=== PATIENT | male | born 1950 | race Caucasian/White ===

== ENCOUNTER 2018-06-08 04:46 | Inpatient (IN) | payer MEDICARE, MEDICAID ==
[~2018-06-08] VITALS: Ht 167.6 cm; Wt 69.5 kg
[~2018-06-08 04:46] MED LIST: BENZ1TAB7 PO; CLON-528 PO; ESCI20TA29 PO; HAL5T PO; SYN0.088T PO
[2018-06-08] MEDS ORDERED: levoFLOXACIN-Levaquin 750MG/D5 150 ML IV STA (05:55)
[2018-06-08] MEDS ORDERED: normal saline 1000ML IV soln IVB ONE ×2 (06:00→06:30)
[2018-06-08] MEDS ORDERED: etomidate 2mg/ml inj. ONE (06:00)
[2018-06-08] MEDS ORDERED: SIMV20TA5 PO (06:06)
[2018-06-08 06:27] LABS: BASOPHILS % (AUTO) 0 % (0-1); EOSINOPHILS # (AUTO) 0.1 X10'3 (0-0.9); EOSINOPHILS % (AUTO) 1.3 % (0-6); HEMATOCRIT 52.9 % (42.0-52.0); HEMOGLOBIN 17.8 g/dl (14.0-17.9); LYMPHOCYTES # (AUTO) 0.2 X10'3 (1.1-4.8); LYMPHOCYTES % (AUTO) 1.9 % (21-51); MEAN CORPUSCULAR HEMOGLOBIN 28.9 PG (27.0-31.0); MEAN CORPUSCULAR HGB CONC 33.6 % (33.0-36.5); MEAN CORPUSCULAR VOLUME 86.2 FL (78-98); MEAN PLATELET VOLUME 10.1 FL (7.4-10.4); MONOCYTES # (AUTO) 0.8 X10'3 (0-0.9); MONOCYTES % (AUTO) 6.9 % (2-12); NEUTROPHILS # (AUTO) 10.2 X10'3 (1.8-7.7); NEUTROPHILS % (AUTO) 89.9 % (42-75); PLATELET COUNT 250 X10'3 (140-440); RED BLOOD COUNT 6.14 X10'6 (4.70-6.10); RED CELL DISTRIBUTION WIDTH 14.6 % (11.5-14.5); WHITE BLOOD COUNT 11.3 X10'3 (4.5-11.0)
--- NOTE | 2018-06-08 06:29 | NUR ---
Held lynetteuin due to blood culture not being drawn prior. Addendum: 06/08/18 at 0630 by HGOFF Will await first set of blood cultures to continue abx.
[2018-06-08] MEDS ORDERED: ondansetron/PF 4mg/2ml inj IV ONE (06:30)
[2018-06-08] MEDS ORDERED: morphine 4 MG/ML inj SYRINge IV PRN (06:30)
--- NOTE | 2018-06-08 06:30 | NUR ---
Spoke with Dr. Yee regarding patient rolling from side to side, c/o top of head pain and palpable pain over bilateral flanks. And need for pain medication. Dr. Yee stated that he would order something for pain.
[2018-06-08 07:03] LABS: ALANINE AMINOTRANSFERASE 281 U/L (12-78); ALBUMIN/GLOBULIN RATIO 0.6 (1.1-1.5); ALKALINE PHOSPHATASE 59 IU/L (46-116); ANION GAP 16 (8-16); ASPARTATE AMINO TRANSFERASE 674 U/L (10-37); BLOOD UREA NITROGEN 35 MG/DL (7-18); BUN/CREATININE RATIO 24.1 (5.4-32.0); CALCIUM 9.1 MG/DL (8.5-10.1); CHLORIDE 103 MMOL/L (99-107); CREATININE 1.45 MG/DL (0.60-1.10); GLUCOSE 203 MG/DL (70-104); POTASSIUM 3.4 MMOL/L (3.5-5.1); SODIUM 144 MMOL/L (135-145); TOTAL CARBON DIOXIDE 24.8 MMOL/L (24-32); TOTAL PROTEIN 8.1 G/DL (6.4-8.2); eGFR 49 ML/MIN
[2018-06-08] MEDS ORDERED: CefTRIAXone 2gm/D5W 50ml 50 ML IV ONE (07:05)
[2018-06-08 07:08] LABS: MAGNESIUM 2.7 MG/DL (1.5-2.4)
[2018-06-08] MEDS ORDERED: acetaminophen 325mg tablet PO PRN (07:25)
[2018-06-08] MEDS ORDERED: mag hydrox/Alum hydrox/simeth 30ml oral suspension PO PRN (07:25)
[2018-06-08] MEDS ORDERED: ondansetron/PF 4mg/2ml inj IV PRN (07:25)
[2018-06-08] MEDS ORDERED: magnesium hydroxide 30ml (MOM) UD suspension PO PRN (07:25)
[2018-06-08 07:26] LABS: CLARITY,URINE SLIGHTLY CLOUDY (Clear); GLUCOSE, URINE NEGATIVE (Neg); KETONES,URINE TRACE mg/dl (Neg); LEUKOCYTE ESTERASE ,URINE NEGATIVE (Neg); NITRITES, URINE NEGATIVE (Neg); OCCULT BLOOD,URINE LARGE (Neg); PROTEIN,URINE >=300 mg/dl (Neg); UROBILINOGEN,URINE 0.2 E.U/dL (0.2-1.0)
[2018-06-08 07:27] LABS: COLOR,URINE BROWN (Yellow); UA COLLECTION TYPE STRAIGHT CATH
[2018-06-08 07:30] LABS: WBC,URINE 30-50 /HPF (0-4)
[2018-06-08 07:31] LABS: BACTERIA,URINE 1+ /HPF (Neg)
[2018-06-08 07:32] LABS: CELLULAR CAST >30 /LPF (NEGATIVE); SQUAMOUS EPITHELIAL CELL,UR NONE SEEN /LPF (FEW)
[2018-06-08] MEDS: heparin, porcine 5000 units/ml vial SQ SCH ×2 (08:15→20:48)
[2018-06-08] MEDS: piperacillin-tazo 2.25gm/50ml 50 ML IV SCH ×3 (08:17→20:47)
[2018-06-08] MEDS: normal saline 1000ml 1,000 ML IV SCH ×2 (08:21→14:56)
[2018-06-08] MEDS ORDERED: LORazepam 2 mg/ml vial IV ONE (08:45)
[2018-06-08] MEDS: haloperidol 5mg tablet PO SCH (09:05)
[2018-06-08] MEDS ORDERED: potassium Cl 40MEQ/NS 500ml 500 ML IV PRN ×2 (09:05)
[2018-06-08] MEDS: K and/or MAG REPLACEMENT MC SCH (09:05)
[2018-06-08] MEDS ORDERED: potassium Cl 20 mEq SR tablet PO PRN (09:05)
[2018-06-08] MEDS: citalopram 20mg tablet PO SCH (09:05)
--- NOTE | 2018-06-08 09:31 | NUR ---
Patient found in hallway outside of bed 6 in a chair, patients IV had been pulled out and patient was bleeding on the ground, gurney, floor and chair. Pressure applied to IV site, Notified EVS to assisted with floor and room clean up. Patient was guided back to [facility] then cleaned with wipes and dressed in grown. Patient urinated on gurney when back on [facility]. Patient now resting on rtiger with sitter, but patient continues to roll from side to side, restless. pPtient denies any pain. Palpated abd without any grimace and/or wincing. Will continue to monitor patient. Ativan administered to help with restlessness.
--- NOTE | 2018-06-08 10:07 | NUR ---
Patient in room ED 6. I have received report from Danielle SPRINGER and had the opportunity to ask questions and assume patient care.
--- NOTE | 2018-06-08 10:20 | NUR ---
Patient arrived to U 3012C, accompanied by Zuri RN. Patient is extremely restless and trying to get out of bed. Patient VS: T:97.1 ax, HR 77, R: 20, 02: 91% 4L, BP 124/94. Will continue to monitor.
--- NOTE | 2018-06-08 11:03 | NUR ---
Paged Dr. Balderas: PAGER ID: [phone] MESSAGE: Summer [facility] [id number] RE: Dany Gray [id number]. Patient is extremely restless and agitated. Constantly rolling from side to side. Received one time dose of 0.5 mg IV Ativan @ 0930. Please advise.
[2018-06-08] MEDS ORDERED: LIDOcaine 2% 10ml TOPICAL JELLY (Urojet) MM PRN (11:10)
[2018-06-08] MEDS: LORazepam 2 mg/ml vial IV PRN ×2 (11:21→15:53)
--- NOTE | 2018-06-08 12:07 | NUR ---
Bladder scan 490 mL/urine retention. Per Dr. Balderas, caudet rojo catheter placed with urojet. Patient has hypospadias. Patient tolerated procedure well. Will continue to monitor.
--- NOTE | 2018-06-08 13:25 | NUR ---
Paged Dr. Balderas: PAGER ID: [phone] MESSAGE: Summer U [id number] RE: Dany Gray [id number]. Speech therapy recommends patient continue to be NPO at this time and will reassess FYI. Patient has several psych meds that were not administered in ER. Please advise. Thank you.
[2018-06-08 15:00] VITALS: BP 129/85
[2018-06-08 19:00] VITALS: BP 140/83
[2018-06-08] MEDS ORDERED: haloperidol lactate 5mg/ml inj IM ONE (20:00)
[2018-06-08] MEDS: benztropine 1mg tablet PO SCH (20:00)
[2018-06-08] MEDS: atorvastatin 10mg tablet PO SCH (21:00)
[2018-06-08 22:00] VITALS: BP 136/79
[2018-06-09] VITALS (8 sets, daily range): BP systolic 131–187; BP diastolic 88–106
[2018-06-09] MEDS: LORazepam 2 mg/ml vial IV PRN ×5 (01:18→20:56)
[2018-06-09] MEDS: piperacillin-tazo 2.25gm/50ml 50 ML IV SCH ×4 (01:34→21:00)
[2018-06-09] MEDS: normal saline 1000ml 1,000 ML IV SCH ×3 (01:34→23:22)
[2018-06-09 06:01] LABS: BASOPHILS % (AUTO) 0.1 % (0-1); EOSINOPHILS % (AUTO) 0 % (0-6); HEMATOCRIT 45.4 % (42.0-52.0); HEMOGLOBIN 14.9 g/dl (14.0-17.9); LYMPHOCYTES # (AUTO) 0.3 X10'3 (1.1-4.8); LYMPHOCYTES % (AUTO) 3.4 % (21-51); MEAN CORPUSCULAR HEMOGLOBIN 28.7 PG (27.0-31.0); MEAN CORPUSCULAR HGB CONC 32.8 % (33.0-36.5); MEAN CORPUSCULAR VOLUME 87.4 FL (78-98); MEAN PLATELET VOLUME 9.6 FL (7.4-10.4); MONOCYTES # (AUTO) 0.5 X10'3 (0-0.9); MONOCYTES % (AUTO) 5.6 % (2-12); NEUTROPHILS # (AUTO) 7.7 X10'3 (1.8-7.7); NEUTROPHILS % (AUTO) 90.9 % (42-75); PLATELET COUNT 222 X10'3 (140-440); RED BLOOD COUNT 5.19 X10'6 (4.70-6.10); RED CELL DISTRIBUTION WIDTH 13.4 % (11.5-14.5); WHITE BLOOD COUNT 8.5 X10'3 (4.5-11.0)
--- NOTE | 2018-06-09 06:15 | NUR ---
Patient in room PCU 3012. I have received report from Summer SPRINGER and had the opportunity to ask questions and assume patient care.
[2018-06-09 06:25] LABS: ALANINE AMINOTRANSFERASE 263 U/L (12-78); ALBUMIN 2.2 G/DL (3.4-5.0); ALBUMIN/GLOBULIN RATIO 0.6 (1.1-1.5); ALKALINE PHOSPHATASE 43 IU/L (46-116); ANION GAP 10 (8-16); ASPARTATE AMINO TRANSFERASE 434 U/L (10-37); BILIRUBIN,TOTAL 0.6 MG/DL (0.1-1.0); BLOOD UREA NITROGEN 16 MG/DL (7-18); BUN/CREATININE RATIO 18.4 (5.4-32.0); CALCIUM 7.6 MG/DL (8.5-10.1); CHLORIDE 112 MMOL/L (99-107); CREATININE 0.87 MG/DL (0.60-1.10); GLUCOSE 107 MG/DL (70-104); POTASSIUM 3.5 MMOL/L (3.5-5.1); SODIUM 149 MMOL/L (135-145); TOTAL CARBON DIOXIDE 26.7 MMOL/L (24-32); TOTAL PROTEIN 6.2 G/DL (6.4-8.2); eGFR 88 ML/MIN
--- NOTE | 2018-06-09 06:30 | NUR ---
Problems reprioritized. Patient report given, questions answered & plan of care reviewed with Daryl SPRINGER.
[2018-06-09] MEDS: K and/or MAG REPLACEMENT MC SCH (08:00)
[2018-06-09] MEDS: heparin, porcine 5000 units/ml vial SQ SCH ×2 (08:57→20:56)
[2018-06-09] MEDS: citalopram 20mg tablet PO SCH (08:58)
[2018-06-09] MEDS: levoTHYROXINE 88mcg tablet PO SCH (08:58)
[2018-06-09] MEDS: benztropine 1mg tablet PO SCH ×2 (08:58→20:00)
[2018-06-09] MEDS: haloperidol 5mg tablet PO SCH (08:58)
[2018-06-09] MEDS ORDERED: aspirin 81mg tablet.DR PO ONE (13:10)
[2018-06-09] MEDS: atorvastatin 20mg tablet PO SCH (14:44)
--- NOTE | 2018-06-09 15:12 | NUR ---
Paged Dr. Balderas for elevated blood pressure. MESSAGE: Daryl Eddy RN [phone] 3012C Dany Gray: Current BP 185/112 HR 118; up from 151/98 HR 120 at 1100. Thank you.
[2018-06-09] MEDS ORDERED: hydrALAZINE 20mg/ml inj. IV PRN (15:20)
--- NOTE | 2018-06-09 18:05 | NUR ---
Patient in room PCU 3012. I have received report from Daryl SPRINGER and had the opportunity to ask questions and assume patient care.
--- NOTE | 2018-06-09 18:15 | NUR ---
Problems reprioritized. Patient report given, questions answered & plan of care reviewed with Sakina SPRINGER.
[2018-06-09] MEDS: carVEDilol 3.125mg tablet PO SCH (20:00)
[2018-06-09] MEDS: lactobacillus rhamnosus 10,000 MMU CELLS/CAPSULE PO SCH (20:00)
[2018-06-09] MEDS: atorvastatin 10mg tablet PO SCH (21:00)
[2018-06-10] MEDS: piperacillin-tazo 2.25gm/50ml 50 ML IV SCH ×4 (02:03→20:42)
[2018-06-10] MEDS: normal saline 1000ml 1,000 ML IV SCH ×3 (02:03→23:54)
[2018-06-10 03:00] VITALS: BP 156/94
[2018-06-10 05:47] LABS: ALANINE AMINOTRANSFERASE 212 U/L (12-78); ALBUMIN 2.1 G/DL (3.4-5.0); ALBUMIN/GLOBULIN RATIO 0.5 (1.1-1.5); ALKALINE PHOSPHATASE 40 IU/L (46-116); ANION GAP 10 (8-16); ASPARTATE AMINO TRANSFERASE 228 U/L (10-37); BILIRUBIN,TOTAL 0.8 MG/DL (0.1-1.0); BLOOD UREA NITROGEN 13 MG/DL (7-18); BUN/CREATININE RATIO 16.5 (5.4-32.0); CALCIUM 8.1 MG/DL (8.5-10.1); CHLORIDE 108 MMOL/L (99-107); CREATININE 0.79 MG/DL (0.60-1.10); GLUCOSE 114 MG/DL (70-104); SODIUM 147 MMOL/L (135-145); TOTAL CARBON DIOXIDE 29.4 MMOL/L (24-32); TOTAL PROTEIN 6.3 G/DL (6.4-8.2); eGFR > 90 ML/MIN
[2018-06-10 06:01] LABS: BASOPHILS % (AUTO) 0 % (0-1); EOSINOPHILS % (AUTO) 0.1 % (0-6); HEMATOCRIT 45.2 % (42.0-52.0); LYMPHOCYTES # (AUTO) 0.4 X10'3 (1.1-4.8); LYMPHOCYTES % (AUTO) 4.4 % (21-51); MEAN CORPUSCULAR HEMOGLOBIN 28.9 PG (27.0-31.0); MEAN CORPUSCULAR HGB CONC 33.1 % (33.0-36.5); MEAN CORPUSCULAR VOLUME 87.2 FL (78-98); MEAN PLATELET VOLUME 9.4 FL (7.4-10.4); MONOCYTES # (AUTO) 0.4 X10'3 (0-0.9); MONOCYTES % (AUTO) 5.5 % (2-12); NEUTROPHILS # (AUTO) 7.2 X10'3 (1.8-7.7); PLATELET COUNT 239 X10'3 (140-440); RED BLOOD COUNT 5.19 X10'6 (4.70-6.10); RED CELL DISTRIBUTION WIDTH 13.4 % (11.5-14.5)
--- NOTE | 2018-06-10 06:05 | NUR ---
Problems reprioritized. Patient report given, questions answered & plan of care reviewed with Ivy SPRINGER.
--- NOTE | 2018-06-10 06:08 | NUR ---
Patient in room PCU 3012. I have received report from Sakina SPRINGER and had the opportunity to ask questions and assume patient care.
[2018-06-10 06:38] LABS: POTASSIUM 2.9 MMOL/L (3.5-5.1)
[2018-06-10 06:47] VITALS: BP 153/88
[2018-06-10] MEDS: aspirin 81mg tablet.DR PO SCH (07:59)
[2018-06-10] MEDS: benztropine 1mg tablet PO SCH ×2 (07:59→20:31)
[2018-06-10] MEDS: potassium Cl 20 mEq SR tablet PO PRN ×2 (08:00→12:00)
[2018-06-10] MEDS: K and/or MAG REPLACEMENT MC SCH (08:00)
[2018-06-10] MEDS: levoTHYROXINE 88mcg tablet PO SCH (08:01)
[2018-06-10] MEDS: haloperidol 5mg tablet PO SCH (08:01)
[2018-06-10] MEDS: atorvastatin 20mg tablet PO SCH (08:01)
[2018-06-10] MEDS: lactobacillus rhamnosus 10,000 MMU CELLS/CAPSULE PO SCH ×2 (08:01→20:29)
[2018-06-10] MEDS: carVEDilol 3.125mg tablet PO SCH ×2 (08:01→20:29)
[2018-06-10] MEDS: citalopram 20mg tablet PO SCH (08:02)
[2018-06-10] MEDS: heparin, porcine 5000 units/ml vial SQ SCH ×2 (08:03→20:30)
[2018-06-10 11:40] VITALS: BP 141/85
[2018-06-10] MEDS: LORazepam 2 mg/ml vial IV PRN ×2 (15:49→20:31)
[2018-06-10 18:00] VITALS: BP 175/72
--- NOTE | 2018-06-10 18:09 | NUR ---
Problems reprioritized. Patient report given, questions answered & plan of care reviewed with Sakina SPRINGER.
--- NOTE | 2018-06-10 18:10 | NUR ---
Patient in room PCU 3012. I have received report from Ivy SPRINGER and had the opportunity to ask questions and assume patient care.
[2018-06-10 18:50] VITALS: BP 156/92
[2018-06-10] MEDS: atorvastatin 10mg tablet PO SCH (20:29)
[2018-06-10 22:00] VITALS: BP 150/86
[2018-06-11] VITALS (14 sets, daily range): BP systolic 97–172; BP diastolic 64–106
[2018-06-11] MEDS: piperacillin-tazo 2.25gm/50ml 50 ML IV SCH ×4 (02:16→22:33)
[2018-06-11] MEDS: LORazepam 2 mg/ml vial IV PRN (03:07)
[2018-06-11 05:47] LABS: ALANINE AMINOTRANSFERASE 169 U/L (12-78); ALBUMIN 2.1 G/DL (3.4-5.0); ALBUMIN/GLOBULIN RATIO 0.5 (1.1-1.5); ALKALINE PHOSPHATASE 41 IU/L (46-116); ANION GAP 8 (8-16); ASPARTATE AMINO TRANSFERASE 123 U/L (10-37); BILIRUBIN,TOTAL 0.9 MG/DL (0.1-1.0); BLOOD UREA NITROGEN 14 MG/DL (7-18); BUN/CREATININE RATIO 17.9 (5.4-32.0); CALCIUM 7.7 MG/DL (8.5-10.1); CHLORIDE 108 MMOL/L (99-107); CREATININE 0.78 MG/DL (0.60-1.10); GLUCOSE 103 MG/DL (70-104); POTASSIUM 3.5 MMOL/L (3.5-5.1); SODIUM 145 MMOL/L (135-145); TOTAL CARBON DIOXIDE 29.4 MMOL/L (24-32); TOTAL PROTEIN 6.4 G/DL (6.4-8.2); eGFR > 90 ML/MIN
[2018-06-11 05:53] LABS: BASOPHILS % (AUTO) 0 % (0-1); EOSINOPHILS % (AUTO) 0.3 % (0-6); HEMATOCRIT 46.3 % (42.0-52.0); HEMOGLOBIN 14.9 g/dl (14.0-17.9); LYMPHOCYTES # (AUTO) 0.3 X10'3 (1.1-4.8); LYMPHOCYTES % (AUTO) 3.7 % (21-51); MEAN CORPUSCULAR HEMOGLOBIN 27.8 PG (27.0-31.0); MEAN CORPUSCULAR HGB CONC 32.1 % (33.0-36.5); MEAN CORPUSCULAR VOLUME 86.4 FL (78-98); MEAN PLATELET VOLUME 9.8 FL (7.4-10.4); MONOCYTES # (AUTO) 0.5 X10'3 (0-0.9); MONOCYTES % (AUTO) 6.1 % (2-12); NEUTROPHILS # (AUTO) 8.2 X10'3 (1.8-7.7); NEUTROPHILS % (AUTO) 89.9 % (42-75); PLATELET COUNT 248 X10'3 (140-440); RED BLOOD COUNT 5.36 X10'6 (4.70-6.10)
--- NOTE | 2018-06-11 06:05 | NUR ---
Problems reprioritized. Patient report given, questions answered & plan of care reviewed with Ivy SPRINGER.
--- NOTE | 2018-06-11 06:22 | NUR ---
Patient in room PCU 3012. I have received report from Chantell SPRINGER and had the opportunity to ask questions and assume patient care.
[2018-06-11] MEDS: citalopram 20mg tablet PO SCH (07:43)
[2018-06-11] MEDS: levoTHYROXINE 88mcg tablet PO SCH (07:43)
[2018-06-11] MEDS: aspirin 81mg tablet.DR PO SCH (07:43)
[2018-06-11] MEDS: carVEDilol 3.125mg tablet PO SCH ×2 (07:43→20:00)
[2018-06-11] MEDS: lactobacillus rhamnosus 10,000 MMU CELLS/CAPSULE PO SCH ×2 (07:43→22:34)
[2018-06-11] MEDS: benztropine 1mg tablet PO SCH ×2 (07:43→22:35)
[2018-06-11] MEDS: haloperidol 5mg tablet PO SCH (07:44)
[2018-06-11] MEDS: heparin, porcine 5000 units/ml vial SQ SCH (07:46)
[2018-06-11] MEDS: atorvastatin 20mg tablet PO SCH (07:47)
[2018-06-11] MEDS: K and/or MAG REPLACEMENT MC SCH (07:47)
--- NOTE | 2018-06-11 11:54 | NUR ---
PAGER ID: [phone] MESSAGE: Can [email or web address]/Dany Gray get ABG? He's satting 91% on flush. Thank you, Ivy [phone]
[2018-06-11] MEDS: normal saline 1000ml 1,000 ML IV SCH (14:40)
--- NOTE | 2018-06-11 14:56 | NUR ---
PAGER ID: [phone] MESSAGE: [id number]/Dany Gray's blood pressure was 172/106, rechecked twice w/same result. Gave PRN hydralazine 10 mg. BP now 140/82. Thank you. Ivy [phone]
--- NOTE | 2018-06-11 15:21 | NUR ---
PAGER ID: [phone] MESSAGE: [id number]/Dany Gray's satts dropped to 87 on flush, heart rate 118. Please advise. Thank you. Ivy [phone].
[2018-06-11 15:56] LABS: ABG BASE EXCESS 5.8 mmol/L (-2.0-3.0); ABG OXYGEN SATURATION 91.1 % (95-98); ABG PCO2 (T) 30.5 mmHg (35.0-48.0); ABG PH (T) 7.565 (7.350-7.450); ABG PO2 (T) 52.8 mmHg (83-108); ALLEN'S TEST Positive; FCOHb 0.3 % (0.5-1.5); FLOW 15 L/min; FMetHb 0.3 % (0.3-1.12); FO2Hb 90.6 % (94-100); TOTAL HEMOGLOBIN 17.8 G/dl (14.0-18.0)
[2018-06-11] MEDS ORDERED: LORazepam 2 mg/ml vial IV ONE (16:10)
[2018-06-11] MEDS ORDERED: furosemide 40mg/4ml inj IV ONE (16:30)
--- NOTE | 2018-06-11 16:40 | NUR ---
Responded to rapid response on PCU 3012 C Found Pt on cpap 100 % rr 32 Anxious and restless Pt has know psych hx but caregiver states this is different Sat 95 % Lung sounds diminished VSS ABG drawn by RT Charge nurse Kate at bedside
--- NOTE | 2018-06-11 17:00 | NUR ---
PCU nurse called Dr Whitney and she called Dr. Turner Orders received to being pt to ICU
[2018-06-11 17:06] LABS: ABG BASE EXCESS 4.5 mmol/L (-2.0-3.0); ABG HCO3 25.7 mmol/L (22.0-26.0); ABG OXYGEN SATURATION 96.3 % (95-98); ABG PH (T) 7.551 (7.350-7.450); ABG PO2 (T) 76.6 mmHg (83-108); ALLEN'S TEST Positive; FCOHb 0.3 % (0.5-1.5); FMetHb 0.3 % (0.3-1.12); FO2Hb 95.7 % (94-100); RESPIRATORY RATE 16 b/min; RESPIRATORY RATE (OBSERVED) 36 b/min; TIDAL VOLUME 658 mL; TOTAL HEMOGLOBIN 18.3 G/dl (14.0-18.0)
--- NOTE | 2018-06-11 17:50 | NUR ---
Pt arrived to 2007 Remain on cpap with alerted mentation Sat 96 % Dr Turner aware of pt arrival b/p 121/91 hr paced 118
[2018-06-11] MEDS ORDERED: fentaNYL/PF 50MCG/1 ML 2ML syringe IV PRN (17:55)
[2018-06-11] MEDS ORDERED: ipratropium/albuterol 3ml nebule NEB PRN (17:55)
[2018-06-11] MEDS ORDERED: midazolam 2 mg/2 ml injection IV ONE (17:55)
[2018-06-11] MEDS ORDERED: midazolam 2 mg/2 ml injection ONE (17:55)
[2018-06-11] MEDS ORDERED: potassium Cl 20 mEq SR tablet PO PRN ×2 (18:00)
[2018-06-11] MEDS ORDERED: potassium Cl 40MEQ/NS 500ml 500 ML IV PRN ×2 (18:00)
[2018-06-11] MEDS ORDERED: ondansetron/PF 4mg/2ml inj IV PRN (18:00)
[2018-06-11] MEDS ORDERED: acetaminophen 325mg tablet PO PRN ×2 (18:00)
[2018-06-11] MEDS ORDERED: magnesium hydroxide 30ml (MOM) UD suspension PO PRN (18:00)
--- NOTE | 2018-06-11 18:10 | NUR ---
Pt intubated at bedside with RT present Versed and etomidate given as ordered B/p dropped with saline bolus being given Two New IV started left and right arm # 20
--- NOTE | 2018-06-11 18:30 | NUR ---
[id number] I have received report and assumed care of pt. Pt in bed moves all extremities but does not follow commands, Md. at bedside, 100ml ns bolus infusing for a sbp in the mid 60's post intubation, Fentanyl and versed ordered but not initiated at this time due to pts low bp. pts MAP remains less then 65 second 1000 ml of ns infusing per md orders 1929 post 2 liters ns given MAP remains less then 65 MD at bedside, rt subclavian quad lumen CVL placed and pt started on Levophed after placement confirmed by Chest xray [id number] PT taken to a cta of his chest, respitory therapy accompanied pt as well as myself, pt returned to room without incident of difficulties. [address] OG, it keeps coiling in his mouth will attempt again 0 report given to rec rn
--- NOTE | 2018-06-11 18:30 | NUR ---
Problems reprioritized. Patient report given, questions answered & plan of care reviewed with EITAN RN Pt remains restless IV sedation slowly given due to low b/p Cxr done .
[2018-06-11] MEDS ORDERED: NORepinephrine 8mg/ 250ml NS 250 ML IV ONE (19:05)
[2018-06-11] MEDS: ipratropium/albuterol 3ml nebule NEB SCH ×2 (19:39→23:12)
[2018-06-11 20:00] LABS: OXYGEN SATURATION (MIXED VEN) 71.5 % (60-80); PO2 MIXED VENOUS (TEMP COR) 40.1 mmHg (35-46)
[2018-06-11 20:10] LABS: ABG HCO3 25.9 mmol/L (22.0-26.0); ABG OXYGEN SATURATION 96.9 % (95-98); ABG PH (T) 7.442 (7.350-7.450); ABG PO2 (T) 95.3 mmHg (83-108); ALLEN'S TEST Positive; FCOHb 0.2 % (0.5-1.5); FMetHb 0.1 % (0.3-1.12); FO2Hb 96.6 % (94-100); PATIENT TEMPERATURE 37.4; PEEP 10 cm H2O; RESPIRATORY RATE 16 b/min; TIDAL VOLUME 400 mL; TOTAL HEMOGLOBIN 16.1 G/dl (14.0-18.0)
[2018-06-11] MEDS ORDERED: iohexol 350MG/ML 100ml bottle IV ONE (20:18)
[2018-06-11] MEDS: famotidine/PF 10 mg/ml inj IV SCH (22:34)
[2018-06-11] MEDS: FENTANYL-0.9 % NACL/PF 100 ML IV PRN (22:36)
[2018-06-11] MEDS: midazolam 100mg in NS 100ml 100 ML IV PRN (22:37)
[2018-06-12] VITALS (23 sets, daily range): BP systolic 59–119; BP diastolic 49–75
[2018-06-12] MEDS: midazolam 100mg in NS 100ml 100 ML IV PRN (00:21)
--- NOTE | 2018-06-12 00:30 | NUR ---
Patient in room CICU 2008. I have received report from Shaina Mancera and had the opportunity to ask questions and assume patient care.
[2018-06-12] MEDS: FENTANYL-0.9 % NACL/PF 100 ML IV PRN ×3 (01:06→23:35)
[2018-06-12] MEDS: normal saline 1000ml 1,000 ML IV SCH (01:22)
[2018-06-12] MEDS: piperacillin-tazo 2.25gm/50ml 50 ML IV SCH ×4 (02:36→20:01)
--- NOTE | 2018-06-12 03:13 | NUR ---
Attempted to place OG tube and NG tube without success. OG and NG kept coiling and kept getting resistance while trying to advance. KUB obtained, placement not confirmed at this time. Patient placed on left side at this time. Will attain another KUB.
[2018-06-12] MEDS: ipratropium/albuterol 3ml nebule NEB SCH ×6 (03:39→23:02)
[2018-06-12 03:48] LABS: BASOPHILS % (AUTO) 0.1 % (0-1); EOSINOPHILS # (AUTO) 0.1 X10'3 (0-0.9); EOSINOPHILS % (AUTO) 0.5 % (0-6); HEMATOCRIT 46.5 % (42.0-52.0); HEMOGLOBIN 14.7 g/dl (14.0-17.9); LYMPHOCYTES # (AUTO) 0.5 X10'3 (1.1-4.8); LYMPHOCYTES % (AUTO) 4.4 % (21-51); MEAN CORPUSCULAR HEMOGLOBIN 27.6 PG (27.0-31.0); MEAN CORPUSCULAR HGB CONC 31.6 % (33.0-36.5); MEAN CORPUSCULAR VOLUME 87.3 FL (78-98); MEAN PLATELET VOLUME 9.9 FL (7.4-10.4); MONOCYTES # (AUTO) 0.7 X10'3 (0-0.9); MONOCYTES % (AUTO) 5.9 % (2-12); NEUTROPHILS # (AUTO) 10.1 X10'3 (1.8-7.7); NEUTROPHILS % (AUTO) 89.1 % (42-75); PLATELET COUNT 261 X10'3 (140-440); RED BLOOD COUNT 5.32 X10'6 (4.70-6.10); RED CELL DISTRIBUTION WIDTH 12.9 % (11.5-14.5); WHITE BLOOD COUNT 11.4 X10'3 (4.5-11.0)
[2018-06-12 04:02] LABS: ALANINE AMINOTRANSFERASE 134 U/L (12-78); ALBUMIN/GLOBULIN RATIO 0.5 (1.1-1.5); ALKALINE PHOSPHATASE 38 IU/L (46-116); ANION GAP 9 (8-16); ASPARTATE AMINO TRANSFERASE 71 U/L (10-37); BILIRUBIN,TOTAL 0.9 MG/DL (0.1-1.0); BLOOD UREA NITROGEN 19 MG/DL (7-18); BUN/CREATININE RATIO 19.4 (5.4-32.0); CALCIUM 7.5 MG/DL (8.5-10.1); CHLORIDE 109 MMOL/L (99-107); CREATININE 0.98 MG/DL (0.60-1.10); GLUCOSE 119 MG/DL (70-104); PHOSPHORUS 4.2 MG/DL (2.3-4.5); SODIUM 147 MMOL/L (135-145); TOTAL PROTEIN 6.3 G/DL (6.4-8.2); eGFR 77 ML/MIN
[2018-06-12 04:15] LABS: ABG BASE EXCESS -1.5 mmol/L (-2.0-3.0); ABG HCO3 23.9 mmol/L (22.0-26.0); ABG OXYGEN SATURATION 94.8 % (95-98); ABG PH (T) 7.364 (7.350-7.450); ABG PO2 (T) 82.4 mmHg (83-108); ALLEN'S TEST Positive; FCOHb 0.2 % (0.5-1.5); FMetHb 0.3 % (0.3-1.12); FO2Hb 94.3 % (94-100); PATIENT TEMPERATURE 37.2; PEEP 10 cm H2O; RESPIRATORY RATE 14 b/min; TIDAL VOLUME 400 mL; TOTAL HEMOGLOBIN 15.8 G/dl (14.0-18.0)
--- NOTE | 2018-06-12 04:15 | NUR ---
Critical K received. Notified June Indra MO. New orders received. Also urine output has decreased over last two hours. New orders received for bolus.
[2018-06-12] MEDS ORDERED: normal saline 500ml IV soln 500 ML IV ONE (04:20)
[2018-06-12 05:09] LABS: TROPONIN I 0.07 NG/ML (0.0-0.05)
[2018-06-12] MEDS: potassium Cl 40MEQ/250ML bag 250 ML IV PRN ×2 (05:31→07:46)
[2018-06-12] MEDS ORDERED: vancomycin/NS 1 GM ADD-VANTAGE 250 ML IV SCH (06:00)
--- NOTE | 2018-06-12 06:25 | NUR ---
Problems reprioritized. Patient report given, questions answered & plan of care reviewed with Jorge L SPRINGER.
[2018-06-12] MEDS: benztropine 1mg tablet PO SCH ×2 (08:00→20:01)
[2018-06-12] MEDS: atorvastatin 20mg tablet PO SCH (08:00)
[2018-06-12] MEDS: citalopram 20mg tablet PO SCH (08:00)
[2018-06-12] MEDS: aspirin 81mg tablet.DR PO SCH (08:00)
[2018-06-12] MEDS: haloperidol 5mg tablet PO SCH (08:00)
[2018-06-12] MEDS: lactobacillus rhamnosus 10,000 MMU CELLS/CAPSULE PO SCH ×2 (08:00→20:00)
[2018-06-12] MEDS: carVEDilol 3.125mg tablet PO SCH ×2 (08:00→20:00)
[2018-06-12] MEDS: levoTHYROXINE 88mcg tablet PO SCH (08:00)
[2018-06-12] MEDS: K and/or MAG REPLACEMENT MC SCH (08:39)
--- NOTE | 2018-06-12 10:00 | NUR ---
Dr Quigley at bedside; orders received. She would like to go up on the fentanyl in order to get the versed off, if pt tolerates it. Also, orders to have IR place NG tube due to previous failed attempts. After placement, start tube feed and DC IV fluids. Also, R/O flu.
--- NOTE | 2018-06-12 10:59 | NUR ---
Initial: Pt initially admitted for acute resp failure with hypoxia and possible aspiration with possible sepsis. Pt with rapid response and now in critical care unit and intubated. If prolonged intubation recommend continuous TF of Vital AF with goal rate of 80 mL to meet estimated nutrient needs. Will continue to follow. Recommendations: 1) If prolonged intubation recommend continuous TF with Vital AF with goal rate of 80 mL/hr 2) If above, prealbumin q M/TH and daily wt 3) BSS following extubation to advance diet as medically indicated, noted that pt on pureed nectar thick diet prior to intubation Addendum: 06/12/18 at [address] Amended: Links added.
--- NOTE | 2018-06-12 11:00 | NUR ---
Called radiology to have NG placed by IR. They said they would call me back
[2018-06-12] MEDS: enoxaparin 40mg/0.4ml syringe SUBCUT SCH (11:39)
[2018-06-12] MEDS: famotidine/PF 10 mg/ml inj IV SCH ×2 (11:39→20:00)
--- NOTE | 2018-06-12 13:57 | NUR ---
Corepack placed by IR. Confirmation placed in stomach per Dr Shaffer; Ok to use for meds, But wait untill KUB tomorrow morning before using for tube feed
[2018-06-12] MEDS ORDERED: furosemide 20 MG/2 ML vial IV ONE (16:20)
--- NOTE | 2018-06-12 17:20 | NUR ---
Lab called to inform me they received the blood sample i sent them for a potassium, but cant find it. they are going to look again and call me back
--- NOTE | 2018-06-12 18:30 | NUR ---
Patient in room CICU 2007. I have received report from Jorge L SPRINGER and had the opportunity to ask questions and assume patient care.
[2018-06-12] MEDS: vancomycin/NS 1 GM ADD-VANTAGE 250 ML IV SCH (18:40)
[2018-06-12] MEDS: mineral oil/petrolatum ophthal oint EACHEYE SCH (20:00)
[2018-06-12] MEDS: haloperidol 1mg tablet PO SCH (20:01)
[2018-06-13] VITALS (23 sets, daily range): BP systolic 73–134; BP diastolic 50–75
[2018-06-13] MEDS ORDERED: VANCOMYCIN LEVEL IV ONE ×2 (00:30→17:30)
[2018-06-13] MEDS: piperacillin-tazo 2.25gm/50ml 50 ML IV SCH ×4 (02:01→20:02)
[2018-06-13] MEDS: mineral oil/petrolatum ophthal oint EACHEYE SCH ×4 (02:01→20:03)
[2018-06-13 02:25] LABS: ABG BASE EXCESS 1.2 mmol/L (-2.0-3.0); ABG HCO3 26.6 mmol/L (22.0-26.0); ABG OXYGEN SATURATION 92.5 % (95-98); ABG PO2 (T) 63.7 mmHg (83-108); ALLEN'S TEST Positive; FCOHb 0.5 % (0.5-1.5); FMetHb 0.3 % (0.3-1.12); FO2Hb 91.8 % (94-100); PEEP 10 cm H2O; RESPIRATORY RATE 16 b/min; TIDAL VOLUME 400 mL; TOTAL HEMOGLOBIN 14.3 G/dl (14.0-18.0)
[2018-06-13] MEDS: ipratropium/albuterol 3ml nebule NEB SCH ×6 (02:41→23:07)
[2018-06-13 03:22] LABS: BASOPHILS % (AUTO) 0.1 % (0-1); EOSINOPHILS # (AUTO) 0.1 X10'3 (0-0.9); EOSINOPHILS % (AUTO) 0.6 % (0-6); HEMOGLOBIN 13.5 g/dl (14.0-17.9); LYMPHOCYTES # (AUTO) 0.4 X10'3 (1.1-4.8); LYMPHOCYTES % (AUTO) 3.3 % (21-51); MEAN CORPUSCULAR HEMOGLOBIN 28.6 PG (27.0-31.0); MEAN CORPUSCULAR HGB CONC 32.8 % (33.0-36.5); MEAN CORPUSCULAR VOLUME 87.1 FL (78-98); MEAN PLATELET VOLUME 10.2 FL (7.4-10.4); MONOCYTES # (AUTO) 0.8 X10'3 (0-0.9); MONOCYTES % (AUTO) 6.1 % (2-12); NEUTROPHILS # (AUTO) 11.4 X10'3 (1.8-7.7); NEUTROPHILS % (AUTO) 89.9 % (42-75); PLATELET COUNT 225 X10'3 (140-440); RED BLOOD COUNT 4.71 X10'6 (4.70-6.10); RED CELL DISTRIBUTION WIDTH 13.4 % (11.5-14.5); WHITE BLOOD COUNT 12.7 X10'3 (4.5-11.0)
[2018-06-13 03:34] LABS: ALANINE AMINOTRANSFERASE 90 U/L (12-78); ALBUMIN 1.8 G/DL (3.4-5.0); ALBUMIN/GLOBULIN RATIO 0.4 (1.1-1.5); ALKALINE PHOSPHATASE 35 IU/L (46-116); ANION GAP 12 (8-16); ASPARTATE AMINO TRANSFERASE 40 U/L (10-37); BILIRUBIN,TOTAL 0.7 MG/DL (0.1-1.0); BLOOD UREA NITROGEN 18 MG/DL (7-18); BUN/CREATININE RATIO 18.9 (5.4-32.0); CALCIUM 7.8 MG/DL (8.5-10.1); CHLORIDE 111 MMOL/L (99-107); CREATININE 0.95 MG/DL (0.60-1.10); GLUCOSE 92 MG/DL (70-104); MAGNESIUM 1.9 MG/DL (1.5-2.4); PHOSPHORUS 2.7 MG/DL (2.3-4.5); POTASSIUM 3.7 MMOL/L (3.5-5.1); SODIUM 149 MMOL/L (135-145); TOTAL CARBON DIOXIDE 26.3 MMOL/L (24-32); TOTAL PROTEIN 5.9 G/DL (6.4-8.2); eGFR 79 ML/MIN
[2018-06-13] MEDS: NORepinephrine 8mg/ 250ml NS 250 ML IV SCH (04:27)
[2018-06-13] MEDS: vancomycin/NS 1 GM ADD-VANTAGE 250 ML IV SCH (05:40)
--- NOTE | 2018-06-13 06:30 | NUR ---
Patient in room CICU 2007. I have received report from GIAN Weiner and had the opportunity to ask questions and assume patient care.
--- NOTE | 2018-06-13 06:45 | NUR ---
Problems reprioritized. Patient report given, questions answered & plan of care reviewed with Isabelle SPRINGER.
[2018-06-13] MEDS ORDERED: sodium chloride 0.45% 1,000 ML IV SCH (07:22)
[2018-06-13] MEDS: K and/or MAG REPLACEMENT MC SCH (08:00)
[2018-06-13] MEDS: carVEDilol 3.125mg tablet PO SCH ×2 (08:00→20:00)
[2018-06-13] MEDS: aspirin 81mg tablet.DR PO SCH (09:59)
[2018-06-13] MEDS: levoTHYROXINE 88mcg tablet PO SCH (09:59)
[2018-06-13] MEDS: lactobacillus rhamnosus 10,000 MMU CELLS/CAPSULE PO SCH ×2 (09:59→20:02)
[2018-06-13] MEDS: famotidine/PF 10 mg/ml inj IV SCH (09:59)
[2018-06-13] MEDS: citalopram 20mg tablet PO SCH (09:59)
[2018-06-13] MEDS: atorvastatin 20mg tablet PO SCH (10:01)
[2018-06-13] MEDS: enoxaparin 40mg/0.4ml syringe SUBCUT SCH (10:02)
[2018-06-13] MEDS: benztropine 1mg tablet PO SCH ×2 (10:03→20:02)
[2018-06-13] MEDS: FENTANYL-0.9 % NACL/PF 100 ML IV PRN ×2 (10:05→20:19)
[2018-06-13] MEDS: azithromycin/NS 500mg/250ml 250 ML IV SCH (13:11)
[2018-06-13] MEDS: methylPREDNISolone sod succ 125mg/2ml vial IV SCH ×2 (13:12→15:10)
--- NOTE | 2018-06-13 14:08 | NUR ---
TF consult 06/13: Pt remains intubated with a Corpak placed. TF recommendations below. Noted that pt currently receiving 200 mL water flush q 6 hours per MD progress notes. Will continue to follow. Initial: Pt initially admitted for acute resp failure with hypoxia and possible aspiration with possible sepsis. Pt with rapid response and now in critical care unit and intubated. If prolonged intubation recommend continuous TF of Vital AF with goal rate of 80 mL to meet estimated nutrient needs. Will continue to follow. Recommendations: 1) Continuous TF via OG tube with Vital AF with goal rate of 80 mL/hr to provide: total volume 1920 mL/day, 2304 kcal, 130 g protein, and 1467 mL water 2) Prealbumin q / and daily wt 3) BSS following extubation to advance diet as medically indicated, noted that pt on pureed nectar thick diet prior to intubation Addendum: 06/13/18 at [address] Amended: Links added.
[2018-06-13] MEDS ORDERED: azithromycin/NS 500mg/250ml 250 ML IV SCH (16:00)
--- NOTE | 2018-06-13 18:35 | NUR ---
Patient in room CICU 2007. I have received report from Isabelle SPRINGER and had the opportunity to ask questions and assume patient care. Patient laying in bed, intubated and sedated on 100mcg/hr of fentanyl. Breathing at set rate of 16 breaths/min and saturating at 96% on 85% FIO2. Levo currently off. Will continue to monitor patient.
--- NOTE | 2018-06-13 18:37 | NUR ---
Problems reprioritized. Patient report given, questions answered & plan of care reviewed with GIAN Akbar.
[2018-06-13] MEDS: haloperidol 1mg tablet PO SCH (20:02)
[2018-06-13] MEDS: famotidine 20mg tablet PO SCH (20:02)
[2018-06-14] VITALS (24 sets, daily range): BP systolic 98–148; BP diastolic 59–105
--- NOTE | 2018-06-14 | NUR ---
No change in patient condition. Will continue to monitor patient.
[2018-06-14] MEDS: methylPREDNISolone sod succ 125mg/2ml vial IV SCH ×4 (01:53→19:35)
[2018-06-14] MEDS: piperacillin-tazo 2.25gm/50ml 50 ML IV SCH ×4 (01:53→19:35)
[2018-06-14] MEDS: mineral oil/petrolatum ophthal oint EACHEYE SCH ×4 (01:53→19:36)
[2018-06-14] MEDS ORDERED: glucagon, human recombinant 1mg kit SUBCUT PRN (02:35)
[2018-06-14] MEDS ORDERED: dextrose 50%-water 50ml dispensing syringe IV PRN ×2 (02:35)
[2018-06-14] MEDS ORDERED: dextrose ORAL solution 15 GM/59 ML bottle PO PRN ×2 (02:35)
[2018-06-14 03:12] LABS: BASOPHILS % (AUTO) 0.1 % (0-1); EOSINOPHILS % (AUTO) 0 % (0-6); HEMOGLOBIN 12.2 g/dl (14.0-17.9); LYMPHOCYTES # (AUTO) 0.1 X10'3 (1.1-4.8); LYMPHOCYTES % (AUTO) 0.9 % (21-51); MEAN CORPUSCULAR HEMOGLOBIN 28.1 PG (27.0-31.0); MEAN CORPUSCULAR HGB CONC 32.2 % (33.0-36.5); MEAN CORPUSCULAR VOLUME 87.3 FL (78-98); MEAN PLATELET VOLUME 9.8 FL (7.4-10.4); MONOCYTES # (AUTO) 0.1 X10'3 (0-0.9); MONOCYTES % (AUTO) 0.9 % (2-12); NEUTROPHILS % (AUTO) 98.1 % (42-75); PLATELET COUNT 206 X10'3 (140-440); RED BLOOD COUNT 4.35 X10'6 (4.70-6.10); RED CELL DISTRIBUTION WIDTH 13.3 % (11.5-14.5); WHITE BLOOD COUNT 10.2 X10'3 (4.5-11.0)
[2018-06-14] MEDS: ipratropium/albuterol 3ml nebule NEB SCH ×6 (03:28→22:59)
[2018-06-14] MEDS: insulin regular, human vial - multi-dose SQ SCH ×4 (03:44→19:40)
--- NOTE | 2018-06-14 03:51 | NUR ---
Patient's blood sugar 206 at 0200. Notified June, new orders received for hyperglycemia protocol. Delay in administration due to delay in receiving med from pharmacy, patient covered for 4 hrs of TF nutritional dose.
[2018-06-14 04:08] LABS: ALANINE AMINOTRANSFERASE 69 U/L (12-78); ALBUMIN 1.6 G/DL (3.4-5.0); ALBUMIN/GLOBULIN RATIO 0.4 (1.1-1.5); ALKALINE PHOSPHATASE 36 IU/L (46-116); ANION GAP 11 (8-16); ASPARTATE AMINO TRANSFERASE 32 U/L (10-37); BILIRUBIN,TOTAL 0.5 MG/DL (0.1-1.0); BLOOD UREA NITROGEN 20 MG/DL (7-18); BUN/CREATININE RATIO 23.5 (5.4-32.0); CHLORIDE 108 MMOL/L (99-107); CREATININE 0.85 MG/DL (0.60-1.10); GLUCOSE 211 MG/DL (70-104); SODIUM 145 MMOL/L (135-145); TOTAL CARBON DIOXIDE 25.7 MMOL/L (24-32); eGFR 90 ML/MIN
[2018-06-14 04:11] LABS: ABG BASE EXCESS 3.4 mmol/L (-2.0-3.0); ABG HCO3 30.1 mmol/L (22.0-26.0); ABG OXYGEN SATURATION 96.5 % (95-98); ABG PCO2 (T) 54.5 mmHg (35.0-48.0); ABG PO2 (T) 91.6 mmHg (83-108); ALLEN'S TEST Positive; FCOHb 0.1 % (0.5-1.5); FMetHb 0.3 % (0.3-1.12); FO2Hb 96.1 % (94-100); PEEP 10 cm H2O; RESPIRATORY RATE 16 b/min; TIDAL VOLUME 400 mL; TOTAL HEMOGLOBIN 13.8 G/dl (14.0-18.0)
[2018-06-14] MEDS: FENTANYL-0.9 % NACL/PF 100 ML IV PRN ×2 (05:25→17:24)
--- NOTE | 2018-06-14 06:27 | NUR ---
Problems reprioritized. Patient report given, questions answered & plan of care reviewed with Isabelle SPRINGER.
--- NOTE | 2018-06-14 06:30 | NUR ---
Patient in room CICU 2007. I have received report from GIAN Akbar and had the opportunity to ask questions and assume patient care.
[2018-06-14] MEDS: carVEDilol 3.125mg tablet PO SCH ×2 (06:56→20:00)
[2018-06-14] MEDS: K and/or MAG REPLACEMENT MC SCH (06:56)
[2018-06-14 07:17] LABS: MAGNESIUM 2.1 MG/DL (1.5-2.4); PHOSPHORUS 2.9 MG/DL (2.3-4.5); PREALBUMIN 10.3 MG/DL (19-36)
[2018-06-14 07:30] LABS: HEMOGLOBIN A1C 6.6 % (4.5-6.2)
[2018-06-14] MEDS: benztropine 1mg tablet PO SCH ×2 (07:40→19:35)
[2018-06-14] MEDS: enoxaparin 40mg/0.4ml syringe SUBCUT SCH (07:40)
[2018-06-14] MEDS: famotidine 20mg tablet PO SCH ×2 (07:41→19:35)
[2018-06-14] MEDS: azithromycin/NS 500mg/250ml 250 ML IV SCH (07:41)
[2018-06-14] MEDS: atorvastatin 20mg tablet PO SCH (07:41)
[2018-06-14] MEDS: aspirin 81mg tablet.DR PO SCH (07:41)
[2018-06-14] MEDS: citalopram 20mg tablet PO SCH (07:41)
[2018-06-14] MEDS: lactobacillus rhamnosus 10,000 MMU CELLS/CAPSULE PO SCH ×2 (07:41→19:36)
[2018-06-14] MEDS: levoTHYROXINE 88mcg tablet PO SCH (07:41)
[2018-06-14] MEDS ORDERED: furosemide 20 MG/2 ML vial IV ONE (11:25)
--- NOTE | 2018-06-14 18:15 | NUR ---
Patient in room CICU 2007. I have received report from Isabelle SPRINGER and had the opportunity to ask questions and assume patient care. Patient laying in bed, intubated and sedated on 80 mcg/hr of fentanyl. BP 103/65, no pressors running currently. Patient breathing at set rate of 18 breaths/min and saturating at 97% on 80% FIO2. Will continue to monitor patient.
--- NOTE | 2018-06-14 18:16 | NUR ---
Problems reprioritized. Patient report given, questions answered & plan of care reviewed with GIAN Akbar.
--- NOTE | 2018-06-14 20:10 | NUR ---
Checked TF residuals, 240 ccs aspirated from corpak which is currently in the stomach. Will notify [employer] EXAMINER.
[2018-06-14] MEDS: insulin glargine (Lantus) pen - multi-dose SQ SCH (21:57)
[2018-06-14] MEDS: haloperidol 10mg/5ml UD oral solution PO SCH (21:57)
[2018-06-15] VITALS (23 sets, daily range): BP systolic 95–158; BP diastolic 59–92
--- NOTE | 2018-06-15 | NUR ---
No change in patient condition. Will continue to monitor patient.
[2018-06-15] MEDS: methylPREDNISolone sod succ 125mg/2ml vial IV SCH ×4 (01:35→19:44)
[2018-06-15] MEDS: piperacillin-tazo 2.25gm/50ml 50 ML IV SCH ×4 (01:35→19:44)
[2018-06-15] MEDS: mineral oil/petrolatum ophthal oint EACHEYE SCH ×4 (01:35→19:44)
[2018-06-15] MEDS: insulin regular, human vial - multi-dose SQ SCH ×4 (02:09→19:54)
[2018-06-15] MEDS: ipratropium/albuterol 3ml nebule NEB SCH ×6 (02:28→22:59)
[2018-06-15 02:31] LABS: ABG BASE EXCESS 3.6 mmol/L (-2.0-3.0); ABG HCO3 28.2 mmol/L (22.0-26.0); ABG OXYGEN SATURATION 96.2 % (95-98); ABG PCO2 (T) 42.7 mmHg (35.0-48.0); ABG PH (T) 7.438 (7.350-7.450); ABG PO2 (T) 83.1 mmHg (83-108); ALLEN'S TEST Positive; FCOHb 0.1 % (0.5-1.5); FMetHb 0.1 % (0.3-1.12); PEEP 10 cm H2O; RESPIRATORY RATE 18 b/min; TIDAL VOLUME 400 mL; TOTAL HEMOGLOBIN 13.8 G/dl (14.0-18.0)
[2018-06-15 02:49] LABS: ALANINE AMINOTRANSFERASE 58 U/L (12-78); ALBUMIN 1.8 G/DL (3.4-5.0); ALBUMIN/GLOBULIN RATIO 0.4 (1.1-1.5); ALKALINE PHOSPHATASE 43 IU/L (46-116); ANION GAP 9 (8-16); ASPARTATE AMINO TRANSFERASE 22 U/L (10-37); BILIRUBIN,TOTAL 0.4 MG/DL (0.1-1.0); BLOOD UREA NITROGEN 24 MG/DL (7-18); BUN/CREATININE RATIO 27.3 (5.4-32.0); CALCIUM 8.3 MG/DL (8.5-10.1); CHLORIDE 109 MMOL/L (99-107); CREATININE 0.88 MG/DL (0.60-1.10); GLUCOSE 241 MG/DL (70-104); MAGNESIUM 2.5 MG/DL (1.5-2.4); PHOSPHORUS 1.6 MG/DL (2.3-4.5); POTASSIUM 3.2 MMOL/L (3.5-5.1); SODIUM 148 MMOL/L (135-145); TOTAL CARBON DIOXIDE 29.6 MMOL/L (24-32); TOTAL PROTEIN 6.3 G/DL (6.4-8.2); eGFR 87 ML/MIN
[2018-06-15] MEDS: NORepinephrine 8mg/ 250ml NS 250 ML IV SCH (03:50)
[2018-06-15 03:54] LABS: BASOPHILS # (AUTO) 0.1 X10'3 (0-0.2); BASOPHILS % (AUTO) 0.7 % (0-1); EOSINOPHILS % (AUTO) 0 % (0-6); HEMATOCRIT 38.8 % (42.0-52.0); HEMOGLOBIN 12.4 g/dl (14.0-17.9); LYMPHOCYTES # (AUTO) 0.1 X10'3 (1.1-4.8); LYMPHOCYTES % (AUTO) 0.8 % (21-51); MEAN CORPUSCULAR VOLUME 87.6 FL (78-98); MEAN PLATELET VOLUME 10.4 FL (7.4-10.4); MONOCYTES # (AUTO) 0.4 X10'3 (0-0.9); MONOCYTES % (AUTO) 3.4 % (2-12); NEUTROPHILS # (AUTO) 10.9 X10'3 (1.8-7.7); NEUTROPHILS % (AUTO) 95.1 % (42-75); PLATELET COUNT 206 X10'3 (140-440); RED BLOOD COUNT 4.44 X10'6 (4.70-6.10); RED CELL DISTRIBUTION WIDTH 13.3 % (11.5-14.5); WHITE BLOOD COUNT 11.5 X10'3 (4.5-11.0)
--- NOTE | 2018-06-15 03:59 | NUR ---
Notified June Indra GAMING INVESTIGATOR of patient's low phos of 1.6, informed that patient was started on TF last night and has been having high residuals. States to tell daytime RN to notify daytime manager federal, no new orders received for replacement for now. Will continue to monitor patient.
[2018-06-15] MEDS ORDERED: potassium Cl oral solution 20 MEQ/15 ML PO PRN (04:05)
[2018-06-15] MEDS: potassium Cl oral solution 20 MEQ/15 ML PO PRN ×3 (04:17→17:42)
[2018-06-15] MEDS: FENTANYL-0.9 % NACL/PF 100 ML IV PRN ×2 (05:45→17:28)
--- NOTE | 2018-06-15 06:33 | NUR ---
Problems reprioritized. Patient report given, questions answered & plan of care reviewed with Tahmina SPRINGER.
--- NOTE | 2018-06-15 06:55 | NUR ---
Patient in room CICU 2007. I have received report from GIAN Akbar and had the opportunity to ask questions and assume patient care.
[2018-06-15] MEDS: lactobacillus rhamnosus 10,000 MMU CELLS/CAPSULE PO SCH ×2 (07:28→19:44)
[2018-06-15] MEDS: famotidine 20mg tablet PO SCH ×2 (07:28→19:44)
[2018-06-15] MEDS: atorvastatin 20mg tablet PO SCH (07:28)
[2018-06-15] MEDS: carVEDilol 3.125mg tablet PO SCH ×3 (07:28→23:07)
[2018-06-15] MEDS: azithromycin/NS 500mg/250ml 250 ML IV SCH (07:28)
[2018-06-15] MEDS: aspirin 81mg tablet.DR PO SCH (07:28)
[2018-06-15] MEDS: enoxaparin 40mg/0.4ml syringe SUBCUT SCH (07:29)
[2018-06-15] MEDS: citalopram 20mg tablet PO SCH (07:29)
[2018-06-15] MEDS: levoTHYROXINE 88mcg tablet PO SCH (07:29)
[2018-06-15] MEDS: benztropine 1mg tablet PO SCH ×2 (07:29→19:44)
[2018-06-15] MEDS: K and/or MAG REPLACEMENT MC SCH (08:00)
[2018-06-15] MEDS ORDERED: sulfamethoxazole/trimethoprim DS (800/160mg) tablet PO ONE (09:00)
[2018-06-15] MEDS ORDERED: furosemide 20 MG/2 ML vial IV ONE (09:00)
--- NOTE | 2018-06-15 10:30 | NUR ---
Okay to not replace phos per Dr. Turner
--- NOTE | 2018-06-15 17:38 | NUR ---
Okay to place rectal tube per Dr. Turner
--- NOTE | 2018-06-15 18:15 | NUR ---
Patient in room CICU 2007. I have received report from Tahmina SPRINGER and had the opportunity to ask questions and assume patient care. Patient laying in bed, intubated and sedated on 60mcg/hr of fentanyl. Patient breathing at 18 breaths/min and saturating at 89% on 40% FIO2, which is within MD's established parameters for adequate oxygenation. BP 110/72, not currently on any pressors. Will continue to monitor patient.
--- NOTE | 2018-06-15 18:16 | NUR ---
Problems reprioritized. Patient report given, questions answered & plan of care reviewed with GIAN Akbar.
[2018-06-15] MEDS: insulin glargine (Lantus) pen - multi-dose SQ SCH (19:54)
[2018-06-15] MEDS: haloperidol 10mg/5ml UD oral solution PO SCH (19:55)
[2018-06-16] VITALS (24 sets, daily range): BP systolic 114–157; BP diastolic 67–86
[2018-06-16] MEDS: methylPREDNISolone sod succ 125mg/2ml vial IV SCH ×3 (01:48→14:00)
[2018-06-16] MEDS: mineral oil/petrolatum ophthal oint EACHEYE SCH ×4 (01:48→20:13)
[2018-06-16] MEDS: piperacillin-tazo 2.25gm/50ml 50 ML IV SCH ×4 (01:49→20:13)
[2018-06-16] MEDS: insulin regular, human vial - multi-dose SQ SCH ×4 (02:04→20:28)
[2018-06-16 03:01] LABS: BASOPHILS % (AUTO) 0 % (0-1); EOSINOPHILS # (AUTO) 0.2 X10'3 (0-0.9); EOSINOPHILS % (AUTO) 1.7 % (0-6); HEMATOCRIT 37.9 % (42.0-52.0); HEMOGLOBIN 12.7 g/dl (14.0-17.9); LYMPHOCYTES # (AUTO) 0.1 X10'3 (1.1-4.8); LYMPHOCYTES % (AUTO) 0.7 % (21-51); MEAN CORPUSCULAR HEMOGLOBIN 29.4 PG (27.0-31.0); MEAN CORPUSCULAR HGB CONC 33.5 % (33.0-36.5); MEAN CORPUSCULAR VOLUME 87.7 FL (78-98); MEAN PLATELET VOLUME 11.1 FL (7.4-10.4); MONOCYTES # (AUTO) 0.4 X10'3 (0-0.9); MONOCYTES % (AUTO) 3.1 % (2-12); NEUTROPHILS # (AUTO) 11.9 X10'3 (1.8-7.7); NEUTROPHILS % (AUTO) 94.5 % (42-75); PLATELET COUNT 228 X10'3 (140-440); RED BLOOD COUNT 4.32 X10'6 (4.70-6.10); RED CELL DISTRIBUTION WIDTH 14.4 % (11.5-14.5); WHITE BLOOD COUNT 12.6 X10'3 (4.5-11.0)
[2018-06-16] MEDS: ipratropium/albuterol 3ml nebule NEB SCH ×6 (03:05→22:22)
[2018-06-16 03:21] LABS: ALANINE AMINOTRANSFERASE 56 U/L (12-78); ALBUMIN 1.7 G/DL (3.4-5.0); ALBUMIN/GLOBULIN RATIO 0.4 (1.1-1.5); ALKALINE PHOSPHATASE 41 IU/L (46-116); ANION GAP 4 (8-16); ASPARTATE AMINO TRANSFERASE 24 U/L (10-37); BILIRUBIN,TOTAL 0.3 MG/DL (0.1-1.0); BLOOD UREA NITROGEN 29 MG/DL (7-18); BUN/CREATININE RATIO 31.9 (5.4-32.0); CHLORIDE 110 MMOL/L (99-107); CREATININE 0.91 MG/DL (0.60-1.10); GLUCOSE 212 MG/DL (70-104); MAGNESIUM 2.3 MG/DL (1.5-2.4); PHOSPHORUS 2.2 MG/DL (2.3-4.5); POTASSIUM 3.7 MMOL/L (3.5-5.1); SODIUM 147 MMOL/L (135-145); TOTAL CARBON DIOXIDE 32.6 MMOL/L (24-32); TOTAL PROTEIN 5.9 G/DL (6.4-8.2); eGFR 83 ML/MIN
--- NOTE | 2018-06-16 06:22 | NUR ---
Problems reprioritized. Patient report given, questions answered & plan of care reviewed with Tahmina SPRINGER.
--- NOTE | 2018-06-16 06:34 | NUR ---
Patient in room CICU 2007. I have received report from GIAN Akbar and had the opportunity to ask questions and assume patient care.
[2018-06-16] MEDS: benztropine 1mg tablet PO SCH ×2 (07:37→20:13)
[2018-06-16] MEDS: enoxaparin 40mg/0.4ml syringe SUBCUT SCH (07:38)
[2018-06-16] MEDS: citalopram 20mg tablet PO SCH (07:38)
[2018-06-16] MEDS: carVEDilol 3.125mg tablet PO SCH ×2 (07:38→20:13)
[2018-06-16] MEDS: sulfamethoxazole/trimethoprim DS (800/160mg) tablet PO SCH (07:38)
[2018-06-16] MEDS: lactobacillus rhamnosus 10,000 MMU CELLS/CAPSULE PO SCH ×2 (07:38→20:13)
[2018-06-16] MEDS: atorvastatin 20mg tablet PO SCH (07:38)
[2018-06-16] MEDS: famotidine 20mg tablet PO SCH ×2 (07:38→20:13)
[2018-06-16] MEDS: aspirin 81mg tablet.DR PO SCH (07:38)
[2018-06-16] MEDS: levoTHYROXINE 88mcg tablet PO SCH (07:38)
[2018-06-16] MEDS: K and/or MAG REPLACEMENT MC SCH (08:00)
[2018-06-16] MEDS: FENTANYL-0.9 % NACL/PF 100 ML IV PRN (08:21)
--- NOTE | 2018-06-16 14:21 | NUR ---
reassessment: Pt tolerating feeds at goal. Hx autism w/ PNA. LBM 06/15. Receiving electrolyte replacements per protocol. Will continue to monitor for feeding tolerance. Recommendations: 1) Continuous TF via OG tube with Vital AF with goal rate of 80 mL/hr to provide: total volume 1920 mL/day, 2304 kcal, 130 g protein, and 1467 mL water 2) water flush 200ml Q6 per MD 3)Prealbumin q / and daily wt 4) BSS following extubation to advance diet as medically indicated, noted that pt on pureed nectar thick diet prior to intubation Addendum: 06/16/18 at [address] Amended: Links added.
[2018-06-16] MEDS ORDERED: FENTANYL-0.9 % NACL/PF 100 ML IV PRN (18:05)
--- NOTE | 2018-06-16 18:34 | NUR ---
Problems reprioritized. Patient report given, questions answered & plan of care reviewed with GIAN Espino.
--- NOTE | 2018-06-16 18:35 | NUR ---
Patient in room CICU 2008. I have received report from GIAN Martel and had the opportunity to ask questions and assume patient care.
[2018-06-16 19:29] LABS: ABG BASE EXCESS 6.5 mmol/L (-2.0-3.0); ABG HCO3 31.6 mmol/L (22.0-26.0); ABG OXYGEN SATURATION 92.3 % (95-98); ABG PCO2 (T) 46.9 mmHg (35.0-48.0); ABG PH (T) 7.446 (7.350-7.450); ABG PO2 (T) 61.4 mmHg (83-108); ALLEN'S TEST Positive; FCOHb 0.1 % (0.5-1.5); FMetHb 0.2 % (0.3-1.12); MINUTE VOLUME 8 L/min; PATIENT TEMPERATURE 36.8; PEEP 10 cm H2O; RESPIRATORY RATE 18 b/min; RESPIRATORY RATE (OBSERVED) 18 b/min; TIDAL VOLUME 400 mL; TOTAL HEMOGLOBIN 13.8 G/dl (14.0-18.0)
[2018-06-16] MEDS: haloperidol 10mg/5ml UD oral solution PO SCH (20:14)
[2018-06-16] MEDS: insulin glargine (Lantus) pen - multi-dose SQ SCH (20:29)
[2018-06-17] VITALS (24 sets, daily range): BP systolic 117–167; BP diastolic 62–94
[2018-06-17] MEDS: mineral oil/petrolatum ophthal oint EACHEYE SCH ×4 (02:15→19:34)
[2018-06-17] MEDS: piperacillin-tazo 2.25gm/50ml 50 ML IV SCH ×4 (02:16→19:33)
[2018-06-17] MEDS: insulin regular, human vial - multi-dose SQ SCH ×4 (02:19→21:21)
[2018-06-17 02:28] LABS: BASOPHILS # (AUTO) 0.1 X10'3 (0-0.2); BASOPHILS % (AUTO) 0.9 % (0-1); EOSINOPHILS # (AUTO) 0.1 X10'3 (0-0.9); EOSINOPHILS % (AUTO) 0.9 % (0-6); HEMATOCRIT 36.8 % (42.0-52.0); HEMOGLOBIN 12.4 g/dl (14.0-17.9); LYMPHOCYTES # (AUTO) 0.1 X10'3 (1.1-4.8); LYMPHOCYTES % (AUTO) 1.1 % (21-51); MEAN CORPUSCULAR HEMOGLOBIN 29.3 PG (27.0-31.0); MEAN CORPUSCULAR HGB CONC 33.6 % (33.0-36.5); MEAN CORPUSCULAR VOLUME 87.2 FL (78-98); MONOCYTES # (AUTO) 0.6 X10'3 (0-0.9); MONOCYTES % (AUTO) 4.8 % (2-12); NEUTROPHILS # (AUTO) 11.6 X10'3 (1.8-7.7); NEUTROPHILS % (AUTO) 92.3 % (42-75); PLATELET COUNT 200 X10'3 (140-440); RED BLOOD COUNT 4.22 X10'6 (4.70-6.10); RED CELL DISTRIBUTION WIDTH 14.1 % (11.5-14.5); WHITE BLOOD COUNT 12.5 X10'3 (4.5-11.0)
[2018-06-17] MEDS: ipratropium/albuterol 3ml nebule NEB SCH ×6 (02:30→22:21)
[2018-06-17 02:50] LABS: ALANINE AMINOTRANSFERASE 54 U/L (12-78); ALBUMIN 1.6 G/DL (3.4-5.0); ALBUMIN/GLOBULIN RATIO 0.4 (1.1-1.5); ALKALINE PHOSPHATASE 44 IU/L (46-116); ANION GAP 6 (8-16); ASPARTATE AMINO TRANSFERASE 23 U/L (10-37); BILIRUBIN,TOTAL 0.3 MG/DL (0.1-1.0); BLOOD UREA NITROGEN 27 MG/DL (7-18); BUN/CREATININE RATIO 38.6 (5.4-32.0); CALCIUM 7.7 MG/DL (8.5-10.1); CHLORIDE 107 MMOL/L (99-107); GLUCOSE 155 MG/DL (70-104); MAGNESIUM 2.3 MG/DL (1.5-2.4); PHOSPHORUS 2.5 MG/DL (2.3-4.5); POTASSIUM 3.2 MMOL/L (3.5-5.1); PREALBUMIN 21.8 MG/DL (19-36); SODIUM 145 MMOL/L (135-145); TOTAL CARBON DIOXIDE 31.6 MMOL/L (24-32); TOTAL PROTEIN 5.3 G/DL (6.4-8.2); eGFR > 90 ML/MIN
[2018-06-17 03:07] LABS: LARGE PLATELETS FEW; PLATELET ESTIMATE NORMAL
[2018-06-17 03:36] LABS: ABG BASE EXCESS 7.9 mmol/L (-2.0-3.0); ABG HCO3 33.2 mmol/L (22.0-26.0); ABG PCO2 (T) 49.1 mmHg (35.0-48.0); ABG PH (T) 7.448 (7.350-7.450); ABG PO2 (T) 62.7 mmHg (83-108); ALLEN'S TEST Positive; FCOHb 0.5 % (0.5-1.5); FMetHb 0.2 % (0.3-1.12); FO2Hb 91.4 % (94-100); MINUTE VOLUME 7 L/min; PEEP 10 cm H2O; RESPIRATORY RATE 18 b/min; RESPIRATORY RATE (OBSERVED) 18 b/min; TIDAL VOLUME 400 mL; TOTAL HEMOGLOBIN 13.7 G/dl (14.0-18.0)
[2018-06-17] MEDS: NORepinephrine 8mg/ 250ml NS 250 ML IV SCH (03:50)
--- NOTE | 2018-06-17 06:05 | NUR ---
Problems reprioritized. Patient report given, questions answered & plan of care reviewed with GIAN Martel.
--- NOTE | 2018-06-17 06:38 | NUR ---
Patient in room CICU 2007. I have received report from GIAN Espino and had the opportunity to ask questions and assume patient care.
[2018-06-17] MEDS: potassium Cl 40MEQ/250ML bag 250 ML IV PRN (07:54)
[2018-06-17] MEDS: benztropine 1mg tablet PO SCH ×2 (07:54→19:33)
[2018-06-17] MEDS: levoTHYROXINE 88mcg tablet PO SCH (07:55)
[2018-06-17] MEDS: enoxaparin 40mg/0.4ml syringe SUBCUT SCH (07:55)
[2018-06-17] MEDS: famotidine 20mg tablet PO SCH ×2 (07:55→19:34)
[2018-06-17] MEDS: carVEDilol 3.125mg tablet PO SCH ×2 (07:55→19:33)
[2018-06-17] MEDS: atorvastatin 20mg tablet PO SCH (07:55)
[2018-06-17] MEDS: lactobacillus rhamnosus 10,000 MMU CELLS/CAPSULE PO SCH ×2 (07:55→19:33)
[2018-06-17] MEDS: sulfamethoxazole/trimethoprim DS (800/160mg) tablet PO SCH (07:55)
[2018-06-17] MEDS: aspirin 81mg tablet.DR PO SCH (07:55)
[2018-06-17] MEDS: citalopram 20mg tablet PO SCH (07:55)
[2018-06-17] MEDS: K and/or MAG REPLACEMENT MC SCH (08:00)
[2018-06-17] MEDS ORDERED: methylPREDNISolone sod succ 125mg/2ml vial IV SCH ×2 (08:00→16:00)
--- NOTE | 2018-06-17 09:50 | NUR ---
Rectal tube changed due to leaking. Pt tolerated well
[2018-06-17] MEDS: morphine/NS 100mg/100ml bag 100 ML IV SCH (13:14)
[2018-06-17] MEDS ORDERED: furosemide 20 MG/2 ML vial IV ONE (13:40)
[2018-06-17] MEDS ORDERED: prednisone 10mg tablet PO ONE (13:40)
[2018-06-17] MEDS ORDERED: predniSONE 20 mg tablet PO ONE ×2 (14:40→14:50)
[2018-06-17] MEDS: dexmedetomidin/NS 400mcg/100ml 100 ML IV SCH (15:33)
--- NOTE | 2018-06-17 17:30 | NUR ---
Pt on CPAP since 1529. Tolerating well
--- NOTE | 2018-06-17 18:36 | NUR ---
Problems reprioritized. Patient report given, questions answered & plan of care reviewed with GIAN Marcus.
--- NOTE | 2018-06-17 18:49 | NUR ---
Patient in room CICU 2008. I have received report from Tahmina SPRINGER and had the opportunity to ask questions and assume patient care.
[2018-06-17] MEDS: haloperidol 10mg/5ml UD oral solution PO SCH (21:15)
[2018-06-17] MEDS: insulin glargine (Lantus) pen - multi-dose SQ SCH (21:20)
--- NOTE | 2018-06-17 22:20 | NUR ---
patient resting quietly, vital signs stable no signs of distress will continue to monitor
[2018-06-17] MEDS ORDERED: hydrALAZINE 20mg/ml inj. IV PRN (23:40)
--- NOTE | 2018-06-17 23:40 | NUR ---
patients systolic blood pressure is 172, called Arias to notify him of the elevated SBP, he ordered hydralazine 10mg Q4 PRN for SBP 180 or greater. will continue to monitor
[2018-06-18] VITALS (24 sets, daily range): BP systolic 83–178; BP diastolic 60–100
[2018-06-18] MEDS: mineral oil/petrolatum ophthal oint EACHEYE SCH ×4 (02:11→21:52)
[2018-06-18] MEDS: dexmedetomidin/NS 400mcg/100ml 100 ML IV SCH ×2 (02:11→12:17)
[2018-06-18] MEDS: piperacillin-tazo 2.25gm/50ml 50 ML IV SCH ×2 (02:12→08:10)
[2018-06-18] MEDS: ipratropium/albuterol 3ml nebule NEB SCH ×6 (02:14→22:27)
[2018-06-18 03:27] LABS: BASOPHILS % (AUTO) 0 % (0-1); EOSINOPHILS # (AUTO) 0.1 X10'3 (0-0.9); EOSINOPHILS % (AUTO) 1.1 % (0-6); HEMATOCRIT 41.8 % (42.0-52.0); HEMOGLOBIN 13.9 g/dl (14.0-17.9); LYMPHOCYTES # (AUTO) 0.2 X10'3 (1.1-4.8); LYMPHOCYTES % (AUTO) 1.7 % (21-51); MEAN CORPUSCULAR HEMOGLOBIN 29.2 PG (27.0-31.0); MEAN CORPUSCULAR HGB CONC 33.3 % (33.0-36.5); MEAN CORPUSCULAR VOLUME 87.6 FL (78-98); MEAN PLATELET VOLUME 11.1 FL (7.4-10.4); MONOCYTES # (AUTO) 0.5 X10'3 (0-0.9); MONOCYTES % (AUTO) 3.9 % (2-12); NEUTROPHILS # (AUTO) 12.1 X10'3 (1.8-7.7); NEUTROPHILS % (AUTO) 93.3 % (42-75); PLATELET COUNT 196 X10'3 (140-440); RED BLOOD COUNT 4.77 X10'6 (4.70-6.10); RED CELL DISTRIBUTION WIDTH 13.9 % (11.5-14.5); WHITE BLOOD COUNT 12.9 X10'3 (4.5-11.0)
[2018-06-18 03:45] LABS: ABG BASE EXCESS 8.5 mmol/L (-2.0-3.0); ABG HCO3 33.5 mmol/L (22.0-26.0); ABG OXYGEN SATURATION 94.2 % (95-98); ABG PCO2 (T) 45.7 mmHg (35.0-48.0); ABG PH (T) 7.481 (7.350-7.450); ABG PO2 (T) 63.4 mmHg (83-108); ALLEN'S TEST Positive; FCOHb 0.6 % (0.5-1.5); FMetHb 0.1 % (0.3-1.12); FO2Hb 93.5 % (94-100); MINUTE VOLUME 6 L/min; PATIENT TEMPERATURE 36.3; PEEP 8 cm H2O; RESPIRATORY RATE 0 b/min; RESPIRATORY RATE (OBSERVED) 16 b/min; TIDAL VOLUME 395 mL; TOTAL HEMOGLOBIN 14.6 G/dl (14.0-18.0)
[2018-06-18 03:47] LABS: ALANINE AMINOTRANSFERASE 64 U/L (12-78); ALBUMIN 1.8 G/DL (3.4-5.0); ALBUMIN/GLOBULIN RATIO 0.4 (1.1-1.5); ALKALINE PHOSPHATASE 48 IU/L (46-116); ANION GAP 6 (8-16); ASPARTATE AMINO TRANSFERASE 21 U/L (10-37); BILIRUBIN,TOTAL 0.4 MG/DL (0.1-1.0); BLOOD UREA NITROGEN 23 MG/DL (7-18); BUN/CREATININE RATIO 33.8 (5.4-32.0); CHLORIDE 100 MMOL/L (99-107); CREATININE 0.68 MG/DL (0.60-1.10); GLUCOSE 131 MG/DL (70-104); MAGNESIUM 2.2 MG/DL (1.5-2.4); PHOSPHORUS 3.6 MG/DL (2.3-4.5); POTASSIUM 3.4 MMOL/L (3.5-5.1); SODIUM 140 MMOL/L (135-145); TOTAL CARBON DIOXIDE 33.6 MMOL/L (24-32); TOTAL PROTEIN 5.9 G/DL (6.4-8.2); eGFR > 90 ML/MIN
--- NOTE | 2018-06-18 03:49 | NUR ---
titrated precedex to 0.6 and titrated morphine down and now off since 99, patient is adequately sedated and resting comfortably, vital signs stable to signs of distress will continue to monitor
[2018-06-18 04:21] LABS: PLATELET ESTIMATE NORMAL
[2018-06-18 04:22] LABS: LARGE PLATELETS MODERATE
[2018-06-18] MEDS: potassium Cl 40MEQ/250ML bag 250 ML IV PRN (04:46)
--- NOTE | 2018-06-18 06:15 | NUR ---
Patient in room CICU 2007. I have received report from table games shift manager and had the opportunity to ask questions and assume patient care.
--- NOTE | 2018-06-18 06:20 | NUR ---
Problems reprioritized. Patient report given, questions answered & plan of care reviewed with Linda Del Rio.
[2018-06-18] MEDS: K and/or MAG REPLACEMENT MC SCH (08:00)
[2018-06-18] MEDS: levoTHYROXINE 88mcg tablet PO SCH (08:08)
[2018-06-18] MEDS: predniSONE 20 mg tablet PO SCH (08:09)
[2018-06-18] MEDS: aspirin 81mg tablet.DR PO SCH (08:09)
[2018-06-18] MEDS: citalopram 20mg tablet PO SCH (08:09)
[2018-06-18] MEDS: enoxaparin 40mg/0.4ml syringe SUBCUT SCH (08:09)
[2018-06-18] MEDS: carVEDilol 3.125mg tablet PO SCH ×2 (08:09→21:46)
[2018-06-18] MEDS: famotidine 20mg tablet PO SCH ×2 (08:09→21:46)
[2018-06-18] MEDS: sulfamethoxazole/trimethoprim DS (800/160mg) tablet PO SCH (08:10)
[2018-06-18] MEDS: atorvastatin 20mg tablet PO SCH (08:10)
[2018-06-18] MEDS: lactobacillus rhamnosus 10,000 MMU CELLS/CAPSULE PO SCH ×2 (08:10→21:46)
[2018-06-18] MEDS: benztropine 1mg tablet PO SCH ×2 (08:10→21:46)
[2018-06-18] MEDS: insulin regular, human vial - multi-dose SQ SCH ×2 (09:09→15:32)
--- NOTE | 2018-06-18 09:29 | NUR ---
reassessment: Pt tolerating feeds at goal. Patient did have two high gastric residuals ranging between 300-345 ml yesterday. TF back at goal rate of 80 ml/hr. Hx autism with PNA. LBM 06/17 moderate liquid stools. Will continue to follow. Recommendations: 1) Continuous TF via OG tube with Vital AF with goal rate of 80 mL/hr to provide: total volume 1920 mL/day, 2304 kcal, 130 g protein, and 1467 mL water 2) water flush 200ml Q6 per MD 3)Prealbumin q / and daily wt 4) BSS following extubation to advance diet as medically indicated, noted that pt on pureed nectar thick diet prior to intubation Addendum: 06/18/18 at [address] Amended: Links added.
[2018-06-18] MEDS: normal saline 1000ml 1,000 ML IV SCH (14:14)
--- NOTE | 2018-06-18 18:13 | NUR ---
Patient in room CICU 2007. I have received report from Sakina SPRINGER and had the opportunity to ask questions and assume patient care.
--- NOTE | 2018-06-18 18:17 | NUR ---
Problems reprioritized. Patient report given, questions answered & plan of care reviewed with oncoming shift.
--- NOTE | 2018-06-18 18:30 | NUR ---
Patient in room CICU 2007. I have received report from GIAN Diaz and had the opportunity to ask questions and assume patient care.
--- NOTE | 2018-06-18 18:40 | NUR ---
went in room to acess patient, patient was vomiting tube feed, suctioned patient, to clear the airway. at the same time noticed the rectal tube was leaking. Administered PRN zofran for the vomiting, stopped tube feed, residuals high 270. Deflated rectal tube it only contained 20ml of water, properly re-inflated rectal tube with 45ml of water. cleaned up patient and repositioned. vital signs stable will continue to monitor
[2018-06-18] MEDS: insulin glargine (Lantus) pen - multi-dose SQ SCH (21:00)
--- NOTE | 2018-06-18 21:00 | NUR ---
held pm dose of lantus as tube feed had been shut off due to vomiting patients blood sugar was 111, decided not to cover with insulin for fear of bottoming out the patients blood sugar. will restart tube feed in an hour and re- check residuals and increase if patients qualifies
[2018-06-18] MEDS: haloperidol 10mg/5ml UD oral solution PO SCH (21:47)
[2018-06-19] VITALS (24 sets, daily range): BP systolic 90–142; BP diastolic 51–84
[2018-06-19] MEDS: ipratropium/albuterol 3ml nebule NEB SCH ×6 (02:24→22:24)
[2018-06-19 02:50] LABS: ALANINE AMINOTRANSFERASE 64 U/L (12-78); ALBUMIN 1.7 G/DL (3.4-5.0); ALBUMIN/GLOBULIN RATIO 0.5 (1.1-1.5); ALKALINE PHOSPHATASE 44 IU/L (46-116); ANION GAP 6 (8-16); ASPARTATE AMINO TRANSFERASE 24 U/L (10-37); BILIRUBIN,TOTAL 0.4 MG/DL (0.1-1.0); BLOOD UREA NITROGEN 25 MG/DL (7-18); BUN/CREATININE RATIO 31.6 (5.4-32.0); CALCIUM 7.9 MG/DL (8.5-10.1); CHLORIDE 102 MMOL/L (99-107); CREATININE 0.79 MG/DL (0.60-1.10); GLUCOSE 149 MG/DL (70-104); MAGNESIUM 2.2 MG/DL (1.5-2.4); PHOSPHORUS 3.2 MG/DL (2.3-4.5); SODIUM 140 MMOL/L (135-145); TOTAL CARBON DIOXIDE 32.2 MMOL/L (24-32); TOTAL PROTEIN 5.4 G/DL (6.4-8.2); eGFR > 90 ML/MIN
[2018-06-19] MEDS: insulin regular, human vial - multi-dose SQ SCH ×3 (02:51→20:16)
[2018-06-19] MEDS: mineral oil/petrolatum ophthal oint EACHEYE SCH ×4 (02:54→20:17)
[2018-06-19 03:25] LABS: ABG BASE EXCESS 7.9 mmol/L (-2.0-3.0); ABG HCO3 30.8 mmol/L (22.0-26.0); ABG OXYGEN SATURATION 96.2 % (95-98); ABG PCO2 (T) 37.3 mmHg (35.0-48.0); ABG PH (T) 7.535 (7.350-7.450); ABG PO2 (T) 77.2 mmHg (83-108); ALLEN'S TEST Positive; FCOHb 0.5 % (0.5-1.5); FMetHb 0.2 % (0.3-1.12); FO2Hb 95.5 % (94-100); MINUTE VOLUME 7 L/min; PEEP 5 cm H2O; RESPIRATORY RATE 18 b/min; RESPIRATORY RATE (OBSERVED) 18 b/min; TIDAL VOLUME 400 mL; TOTAL HEMOGLOBIN 14.9 G/dl (14.0-18.0)
[2018-06-19] MEDS: NORepinephrine 8mg/ 250ml NS 250 ML IV SCH (03:50)
[2018-06-19] MEDS: morphine/NS 100mg/100ml bag 100 ML IV SCH (04:00)
[2018-06-19 04:17] LABS: BASOPHILS # (AUTO) 0.1 X10'3 (0-0.2); BASOPHILS % (AUTO) 0.7 % (0-1); EOSINOPHILS # (AUTO) 0.2 X10'3 (0-0.9); EOSINOPHILS % (AUTO) 1.4 % (0-6); HEMATOCRIT 41.9 % (42.0-52.0); LYMPHOCYTES # (AUTO) 0.2 X10'3 (1.1-4.8); LYMPHOCYTES % (AUTO) 1.2 % (21-51); MEAN CORPUSCULAR HEMOGLOBIN 28.9 PG (27.0-31.0); MEAN CORPUSCULAR HGB CONC 33.3 % (33.0-36.5); MEAN CORPUSCULAR VOLUME 86.8 FL (78-98); MEAN PLATELET VOLUME 11.4 FL (7.4-10.4); MONOCYTES # (AUTO) 0.6 X10'3 (0-0.9); MONOCYTES % (AUTO) 3.7 % (2-12); NEUTROPHILS # (AUTO) 15.4 X10'3 (1.8-7.7); PLATELET COUNT 200 X10'3 (140-440); RED BLOOD COUNT 4.83 X10'6 (4.70-6.10); RED CELL DISTRIBUTION WIDTH 13.8 % (11.5-14.5); WHITE BLOOD COUNT 16.6 X10'3 (4.5-11.0)
[2018-06-19] MEDS: dexmedetomidin/NS 400mcg/100ml 100 ML IV SCH (06:38)
--- NOTE | 2018-06-19 06:42 | NUR ---
Problems reprioritized. Patient report given, questions answered & plan of care reviewed with Brando SPRINGER.
[2018-06-19 07:06] LABS: TOTAL CELLS COUNTED 100
[2018-06-19 07:08] LABS: LARGE PLATELETS FEW; PLATELET ESTIMATE NORMAL; POIKILOCYTOSIS 1+; TOXIC VACUOLATION FEW
[2018-06-19] MEDS: aspirin 81mg tablet.DR PO SCH (08:00)
[2018-06-19] MEDS: K and/or MAG REPLACEMENT MC SCH (08:00)
[2018-06-19] MEDS: citalopram 20mg tablet PO SCH (08:36)
[2018-06-19] MEDS: sulfamethoxazole/trimethoprim DS (800/160mg) tablet PO SCH (08:37)
[2018-06-19] MEDS: atorvastatin 20mg tablet PO SCH (08:37)
[2018-06-19] MEDS: predniSONE 20 mg tablet PO SCH (08:37)
[2018-06-19] MEDS: levoTHYROXINE 88mcg tablet PO SCH (08:37)
[2018-06-19] MEDS: famotidine 20mg tablet PO SCH ×2 (08:37→20:07)
[2018-06-19] MEDS: carVEDilol 3.125mg tablet PO SCH ×2 (08:37→20:00)
[2018-06-19] MEDS: lactobacillus rhamnosus 10,000 MMU CELLS/CAPSULE PO SCH ×2 (08:37→20:07)
[2018-06-19] MEDS: enoxaparin 40mg/0.4ml syringe SUBCUT SCH (08:38)
[2018-06-19] MEDS: benztropine 1mg tablet PO SCH ×2 (08:39→20:07)
--- NOTE | 2018-06-19 09:00 | NUR ---
Patient's blood sugar 79 this AM; Insulin held as patient has not been stable on his tube feeding. MD aware. Will continue to monitor.
--- NOTE | 2018-06-19 11:30 | NUR ---
Dr. Gomez at bedside doing rounds. MD notified about increased residuals; no orders to change flush/rate but to administer Reglan to help stimulate the bowels. Also, patient's SBP in the 90s with MAP in the lower 60s; no new orders at this time. Will continue to monitor.
[2018-06-19] MEDS: metoclopramide 5 mg/ml inj IV PRN ×2 (12:00→17:57)
--- NOTE | 2018-06-19 18:19 | NUR ---
Problems reprioritized. Patient report given, questions answered & plan of care reviewed with Angeline SPRINGER.
--- NOTE | 2018-06-19 18:20 | NUR ---
[facility] I have received report from Brando SPRINGER and had the opportunity to ask questions and assume patient care. Addendum: 06/19/18 at 1924 by Angeline Black RN vital signs stable bp 97/51 hr 82 sating 95% on vent, setting cpap rate 20, rectal tube in place and draining brownish green fecal matter, rojo in place secured and draining clear yellow urine, r subclavian central line infusing without issues. received in report that patient is still having high residuals. will continue to monitor
[2018-06-19] MEDS: haloperidol 10mg/5ml UD oral solution PO SCH (21:00)
[2018-06-19] MEDS: insulin glargine (Lantus) pen - multi-dose SQ SCH (22:27)
[2018-06-20] VITALS (24 sets, daily range): BP systolic 90–132; BP diastolic 47–83
[2018-06-20] MEDS: dexmedetomidin/NS 400mcg/100ml 100 ML IV SCH (00:35)
[2018-06-20] MEDS: ipratropium/albuterol 3ml nebule NEB SCH ×6 (02:27→23:20)
[2018-06-20] MEDS: mineral oil/petrolatum ophthal oint EACHEYE SCH ×4 (02:28→20:00)
[2018-06-20] MEDS: insulin regular, human vial - multi-dose SQ SCH ×3 (02:30→21:16)
[2018-06-20 03:07] LABS: BASOPHILS % (AUTO) 0.2 % (0-1); EOSINOPHILS % (AUTO) 0 % (0-6); HEMATOCRIT 39.9 % (42.0-52.0); HEMOGLOBIN 13.2 g/dl (14.0-17.9); LYMPHOCYTES # (AUTO) 0.3 X10'3 (1.1-4.8); LYMPHOCYTES % (AUTO) 1.6 % (21-51); MEAN CORPUSCULAR HEMOGLOBIN 29.1 PG (27.0-31.0); MEAN CORPUSCULAR HGB CONC 33.1 % (33.0-36.5); MEAN CORPUSCULAR VOLUME 87.7 FL (78-98); MEAN PLATELET VOLUME 11.9 FL (7.4-10.4); MONOCYTES % (AUTO) 6.2 % (2-12); NEUTROPHILS # (AUTO) 14.5 X10'3 (1.8-7.7); PLATELET COUNT 178 X10'3 (140-440); RED BLOOD COUNT 4.55 X10'6 (4.70-6.10); RED CELL DISTRIBUTION WIDTH 14.2 % (11.5-14.5); WHITE BLOOD COUNT 15.8 X10'3 (4.5-11.0)
[2018-06-20 03:16] LABS: ALANINE AMINOTRANSFERASE 69 U/L (12-78); ALBUMIN 1.6 G/DL (3.4-5.0); ALBUMIN/GLOBULIN RATIO 0.5 (1.1-1.5); ALKALINE PHOSPHATASE 50 IU/L (46-116); ANION GAP 8 (8-16); ASPARTATE AMINO TRANSFERASE 26 U/L (10-37); BILIRUBIN,TOTAL 0.4 MG/DL (0.1-1.0); BLOOD UREA NITROGEN 23 MG/DL (7-18); BUN/CREATININE RATIO 37.7 (5.4-32.0); CALCIUM 7.6 MG/DL (8.5-10.1); CHLORIDE 102 MMOL/L (99-107); CREATININE 0.61 MG/DL (0.60-1.10); GLUCOSE 131 MG/DL (70-104); MAGNESIUM 2.1 MG/DL (1.5-2.4); PHOSPHORUS 3.1 MG/DL (2.3-4.5); POTASSIUM 3.7 MMOL/L (3.5-5.1); SODIUM 139 MMOL/L (135-145); TOTAL CARBON DIOXIDE 29.3 MMOL/L (24-32); TOTAL PROTEIN 4.9 G/DL (6.4-8.2); eGFR > 90 ML/MIN
[2018-06-20 04:06] LABS: ABG BASE EXCESS 4.3 mmol/L (-2.0-3.0); ABG HCO3 28.2 mmol/L (22.0-26.0); ABG OXYGEN SATURATION 94.9 % (95-98); ABG PCO2 (T) 39.7 mmHg (35.0-48.0); ABG PH (T) 7.469 (7.350-7.450); ABG PO2 (T) 76.4 mmHg (83-108); ALLEN'S TEST Positive; FCOHb 0.3 % (0.5-1.5); FMetHb 0.1 % (0.3-1.12); FO2Hb 94.5 % (94-100); MINUTE VOLUME 7 L/min; PATIENT TEMPERATURE 37.1; PEEP 5 cm H2O; RESPIRATORY RATE 0 b/min; RESPIRATORY RATE (OBSERVED) 18 b/min; TIDAL VOLUME 376 mL; TOTAL HEMOGLOBIN 14.5 G/dl (14.0-18.0)
--- NOTE | 2018-06-20 06:47 | NUR ---
Patient in room CICU 2007. I have received report from GIAN Marcus and had the opportunity to ask questions and assume patient care.
[2018-06-20] MEDS: K and/or MAG REPLACEMENT MC SCH (06:52)
[2018-06-20] MEDS: carVEDilol 3.125mg tablet PO SCH ×2 (08:00→21:13)
--- NOTE | 2018-06-20 09:00 | NUR ---
Patient in room CICU 2007. I have assumed patient care.
[2018-06-20] MEDS: benztropine 1mg tablet PO SCH ×2 (09:21→21:12)
[2018-06-20] MEDS: enoxaparin 40mg/0.4ml syringe SUBCUT SCH (09:22)
[2018-06-20] MEDS: levoTHYROXINE 88mcg tablet PO SCH (09:22)
[2018-06-20] MEDS: atorvastatin 20mg tablet PO SCH (09:22)
[2018-06-20] MEDS: lactobacillus rhamnosus 10,000 MMU CELLS/CAPSULE PO SCH ×2 (09:22→21:12)
[2018-06-20] MEDS: aspirin 81mg tablet.DR PO SCH (09:22)
[2018-06-20] MEDS: citalopram 20mg tablet PO SCH (09:22)
[2018-06-20] MEDS: famotidine 20mg tablet PO SCH ×2 (09:23→21:13)
[2018-06-20] MEDS: predniSONE 20 mg tablet PO SCH (09:26)
[2018-06-20] MEDS: sulfamethoxazole/trimethoprim DS (800/160mg) tablet PO SCH (09:26)
[2018-06-20] MEDS: normal saline 1000ml 1,000 ML IV SCH (13:55)
--- NOTE | 2018-06-20 18:28 | NUR ---
Problems reprioritized. Patient report given, questions answered & plan of care reviewed with Angeline SPRINGER.
--- NOTE | 2018-06-20 18:30 | NUR ---
Patient in room CICU 2007. I have received report from Ora SPRINGER and had the opportunity to ask questions and assume patient care. Patients caregiver at bedside, SBP 105/68, HR 105 pt on 4l NC sating 92%, rectal tube in place draining to gravity, rojo in place clear yellow urine draining to gravity vital signs stable, no signs of distress will continue to monitor
[2018-06-20] MEDS: morphine/NS 100mg/100ml bag 100 ML IV SCH (20:00)
--- NOTE | 2018-06-20 20:15 | NUR ---
called in room to assist RT with breathing treatment as patient was moving around, upon arriving in room patient pulled core pack out. Notified CLINICAL ASSOCIATE Arias, patient passed swallow eval, per Arias start with a full liquid diet and advance as tolerated. vital signs stable will continue to monitor
[2018-06-20] MEDS: haloperidol 10mg/5ml UD oral solution PO SCH (21:14)
--- NOTE | 2018-06-20 22:04 | NUR ---
spoke to CHELY Bianchi about patients lantus dose of 22 units, stated that he is no longer on tube feed due to pulling his core pack out. stated to cover him with only 12 units lantus tonight and re-evaluate.
[2018-06-20] MEDS: insulin glargine (Lantus) pen - multi-dose SQ SCH (22:24)
[2018-06-21] VITALS (16 sets, daily range): BP systolic 105–145; BP diastolic 61–84
[2018-06-21] MEDS: mineral oil/petrolatum ophthal oint EACHEYE SCH ×5 (02:00→18:47)
[2018-06-21 03:21] LABS: ALANINE AMINOTRANSFERASE 90 U/L (12-78); ALBUMIN 1.8 G/DL (3.4-5.0); ALBUMIN/GLOBULIN RATIO 0.5 (1.1-1.5); ALKALINE PHOSPHATASE 49 IU/L (46-116); ANION GAP 6 (8-16); ASPARTATE AMINO TRANSFERASE 36 U/L (10-37); BILIRUBIN,TOTAL 0.6 MG/DL (0.1-1.0); BLOOD UREA NITROGEN 23 MG/DL (7-18); BUN/CREATININE RATIO 37.1 (5.4-32.0); CALCIUM 7.8 MG/DL (8.5-10.1); CHLORIDE 105 MMOL/L (99-107); CREATININE 0.62 MG/DL (0.60-1.10); GLUCOSE 91 MG/DL (70-104); MAGNESIUM 2.1 MG/DL (1.5-2.4); PHOSPHORUS 3.1 MG/DL (2.3-4.5); POTASSIUM 3.9 MMOL/L (3.5-5.1); PREALBUMIN 27.6 MG/DL (19-36); SODIUM 143 MMOL/L (135-145); TOTAL CARBON DIOXIDE 31.6 MMOL/L (24-32); TOTAL PROTEIN 5.2 G/DL (6.4-8.2); eGFR > 90 ML/MIN
[2018-06-21] MEDS: ipratropium/albuterol 3ml nebule NEB SCH ×6 (03:21→23:39)
[2018-06-21 04:21] LABS: BASOPHILS % (AUTO) 0.1 % (0-1); EOSINOPHILS # (AUTO) 0.4 X10'3 (0-0.9); EOSINOPHILS % (AUTO) 2.1 % (0-6); HEMATOCRIT 39.5 % (42.0-52.0); HEMOGLOBIN 13.2 g/dl (14.0-17.9); LYMPHOCYTES # (AUTO) 0.3 X10'3 (1.1-4.8); LYMPHOCYTES % (AUTO) 1.4 % (21-51); MEAN CORPUSCULAR HGB CONC 33.5 % (33.0-36.5); MEAN CORPUSCULAR VOLUME 86.4 FL (78-98); MONOCYTES # (AUTO) 1.4 X10'3 (0-0.9); MONOCYTES % (AUTO) 7.2 % (2-12); NEUTROPHILS # (AUTO) 17.8 X10'3 (1.8-7.7); NEUTROPHILS % (AUTO) 89.2 % (42-75); PLATELET COUNT 193 X10'3 (140-440); RED BLOOD COUNT 4.57 X10'6 (4.70-6.10); RED CELL DISTRIBUTION WIDTH 14.4 % (11.5-14.5)
--- NOTE | 2018-06-21 06:24 | NUR ---
Problems reprioritized. Patient report given, questions answered & plan of care reviewed with Zuri Del Rio.
[2018-06-21 07:23] LABS: LARGE PLATELETS FEW; PLATELET ESTIMATE NORMAL
[2018-06-21] MEDS: K and/or MAG REPLACEMENT MC SCH (08:00)
[2018-06-21] MEDS: prednisone 10mg tablet PO SCH (08:00)
[2018-06-21] MEDS: lactobacillus rhamnosus 10,000 MMU CELLS/CAPSULE PO SCH ×2 (08:27→19:45)
[2018-06-21] MEDS: benztropine 1mg tablet PO SCH ×2 (08:27→20:49)
[2018-06-21] MEDS: citalopram 20mg tablet PO SCH (08:27)
[2018-06-21] MEDS: levoTHYROXINE 88mcg tablet PO SCH (08:27)
[2018-06-21] MEDS: predniSONE 20 mg tablet PO SCH (08:27)
[2018-06-21] MEDS: sulfamethoxazole/trimethoprim DS (800/160mg) tablet PO SCH (08:28)
[2018-06-21] MEDS: enoxaparin 40mg/0.4ml syringe SUBCUT SCH (08:28)
[2018-06-21] MEDS: famotidine 20mg tablet PO SCH ×2 (08:28→19:45)
[2018-06-21] MEDS: aspirin 81mg tablet.DR PO SCH (08:28)
[2018-06-21] MEDS: carVEDilol 3.125mg tablet PO SCH ×2 (08:28→19:45)
[2018-06-21] MEDS: atorvastatin 20mg tablet PO SCH (08:28)
--- NOTE | 2018-06-21 12:11 | NUR ---
reassessment 06/21: Patient is now extubated, diet was advanced by nursing this morning to regular per MD order. Tube feedings have been discontinued. Ate 0-25% of full liquid breakfast this morning. Prior to intubation patient was on a nectar thick liquid diet with pureed food needing feeder per BRANDS EDITOR recommendations d/t cognitive level, discussed with bedside RN. RN and RD spoke with tip tester today who reports patient usually had no chewing or swallowing difficulty. Noted that pt is oriented to person and place today and RN reports no difficulty swallowing full liquids this morning. Lunch is pending. Will continue to follow. Recommendations: 1) Continuous regular diet 2) Monitor need for ONS 3) BSS if difficulty chewing and swallowing, RN will monitor 4) Weight per rx Addendum: 06/21/18 at [address] Amended: Links added.
--- NOTE | 2018-06-21 13:45 | NUR ---
Patient in room CICU 2008. I have received report from GIAN Keating and had the opportunity to ask questions and assume patient care.
--- NOTE | 2018-06-21 14:45 | NUR ---
Peripheral line placed and central line to right chest discontinued. No bleeding or hematoma, site free from signs of infection.
--- NOTE | 2018-06-21 15:14 | NUR ---
Transferred to Telemetry floor bed 3029X with his belongings. Patient report given, questions answered & plan of care reviewed with GIAN Jj.
--- NOTE | 2018-06-21 18:42 | NUR ---
Patient in room PCU 3023. I have received report from Анна SPRINGER and had the opportunity to ask questions and assume patient care with Bandar SPRINGER.
--- NOTE | 2018-06-21 18:51 | NUR ---
Patient in room PCU 3023. I have received report from Анна SPRINGER and had the opportunity to ask questions and assume patient care.
[2018-06-21] MEDS: haloperidol 10mg/5ml UD oral solution PO SCH (20:50)
[2018-06-21] MEDS: insulin glargine (Lantus) pen - multi-dose SQ SCH (21:00)
[2018-06-22] VITALS (7 sets, daily range): BP systolic 109–130; BP diastolic 61–79
[2018-06-22] MEDS: ipratropium/albuterol 3ml nebule NEB SCH ×5 (03:39→22:30)
[2018-06-22 05:19] LABS: BASOPHILS % (AUTO) 0 % (0-1); EOSINOPHILS # (AUTO) 0.3 X10'3 (0-0.9); EOSINOPHILS % (AUTO) 1.9 % (0-6); HEMATOCRIT 44.6 % (42.0-52.0); HEMOGLOBIN 14.9 g/dl (14.0-17.9); LYMPHOCYTES # (AUTO) 0.3 X10'3 (1.1-4.8); LYMPHOCYTES % (AUTO) 1.7 % (21-51); MEAN CORPUSCULAR HEMOGLOBIN 29.1 PG (27.0-31.0); MEAN CORPUSCULAR HGB CONC 33.3 % (33.0-36.5); MEAN CORPUSCULAR VOLUME 87.2 FL (78-98); MEAN PLATELET VOLUME 11.4 FL (7.4-10.4); MONOCYTES # (AUTO) 0.8 X10'3 (0-0.9); MONOCYTES % (AUTO) 4.3 % (2-12); NEUTROPHILS # (AUTO) 16.6 X10'3 (1.8-7.7); NEUTROPHILS % (AUTO) 92.1 % (42-75); PLATELET COUNT 205 X10'3 (140-440); RED BLOOD COUNT 5.11 X10'6 (4.70-6.10); RED CELL DISTRIBUTION WIDTH 14.1 % (11.5-14.5)
[2018-06-22 05:50] LABS: ALANINE AMINOTRANSFERASE 95 U/L (12-78); ALBUMIN 2.1 G/DL (3.4-5.0); ALBUMIN/GLOBULIN RATIO 0.5 (1.1-1.5); ALKALINE PHOSPHATASE 56 IU/L (46-116); ANION GAP 7 (8-16); ASPARTATE AMINO TRANSFERASE 26 U/L (10-37); BILIRUBIN,TOTAL 0.8 MG/DL (0.1-1.0); BLOOD UREA NITROGEN 25 MG/DL (7-18); BUN/CREATININE RATIO 31.6 (5.4-32.0); CALCIUM 8.3 MG/DL (8.5-10.1); CHLORIDE 100 MMOL/L (99-107); CREATININE 0.79 MG/DL (0.60-1.10); GLUCOSE 160 MG/DL (70-104); MAGNESIUM 2.4 MG/DL (1.5-2.4); PHOSPHORUS 4.4 MG/DL (2.3-4.5); POTASSIUM 4.7 MMOL/L (3.5-5.1); SODIUM 138 MMOL/L (135-145); TOTAL CARBON DIOXIDE 30.7 MMOL/L (24-32); TOTAL PROTEIN 6.2 G/DL (6.4-8.2); eGFR > 90 ML/MIN
--- NOTE | 2018-06-22 06:00 | NUR ---
Patient in room PCU 3023. I have received report from Gela RN and Bandar RN and had the opportunity to ask questions and assume patient care.
--- NOTE | 2018-06-22 06:29 | NUR ---
Problems reprioritized. Patient report given, questions answered & plan of care reviewed with Madhuri and Darrel RNs.
--- NOTE | 2018-06-22 06:30 | NUR ---
orientee documentation: I have reviewed and agree with all interventions, assessments performed and documented by Bandar SPRINGER . pt rested through the night. Did not want to eat much except ice cream by the time he was fed. loose stool but low output.
--- NOTE | 2018-06-22 06:41 | NUR ---
Problems reprioritized. Patient report given, questions answered & plan of care reviewed with Madhuri SPRINGER and Darrel SPRINGER.
[2018-06-22 06:47] LABS: LARGE PLATELETS FEW; PLATELET ESTIMATE NORMAL
[2018-06-22] MEDS: lactobacillus rhamnosus 10,000 MMU CELLS/CAPSULE PO SCH ×2 (08:00→19:47)
[2018-06-22] MEDS: K and/or MAG REPLACEMENT MC SCH (08:00)
[2018-06-22] MEDS: carVEDilol 3.125mg tablet PO SCH ×2 (08:40→19:47)
[2018-06-22] MEDS: atorvastatin 20mg tablet PO SCH (08:40)
[2018-06-22] MEDS: aspirin 81mg tablet.DR PO SCH (08:40)
[2018-06-22] MEDS: famotidine 20mg tablet PO SCH ×2 (08:40→19:47)
[2018-06-22] MEDS: citalopram 20mg tablet PO SCH (08:40)
[2018-06-22] MEDS: levoTHYROXINE 88mcg tablet PO SCH (08:40)
[2018-06-22] MEDS: sulfamethoxazole/trimethoprim DS (800/160mg) tablet PO SCH (08:40)
[2018-06-22] MEDS: mineral oil/petrolatum ophthal oint EACHEYE SCH ×3 (08:41→19:39)
[2018-06-22] MEDS: prednisone 10mg tablet PO SCH (08:41)
[2018-06-22] MEDS: benztropine 1mg tablet PO SCH ×2 (08:41→19:47)
[2018-06-22] MEDS: enoxaparin 40mg/0.4ml syringe SUBCUT SCH (08:43)
[2018-06-22 16:06] LABS: C DIFF ANTIGEN NEGATIVE (NEGATIVE); C DIFF SPECIMEN=DIARRHEA? ACCEPTABLE; C DIFFICILE TOXINS A&B NEGATIVE (Neg)
--- NOTE | 2018-06-22 17:05 | NUR ---
PT FOUND ON FLOOR BY NURSES AID. PATIENT IMMEDIATELY ASSESSED, NO PAIN REPORTED. NO RED CARVALHO OR BLEEDING. VITALS TAKEN, VITALS STABLE. 125/77, 83 HR, 93% O2, 16 RR. PATIENT STATES "HE WAS TRYING TO TURN DOWN T.V.".. CHARGE NURSE ALERTED. PATIENT TO BE TRANSFERRED TO ROOM CLOSER TO NURSES STATION. Addendum: 06/22/18 at 1733 by Madhuri Looney RN RECTAL TUBE IS OUT. FRY CATHETER INTACT.
--- NOTE | 2018-06-22 17:49 | NUR ---
paged Dr Whitney PAGER ID: [phone] MESSAGE: Isaac Dany [phone] had fall. patient assessed, vitals stable. Madhuri [phone]
--- NOTE | 2018-06-22 18:30 | NUR ---
Problems reprioritized. Patient report given, questions answered & plan of care reviewed with GIAN Piedra. RN INFORMED OF FALL RISK.
--- NOTE | 2018-06-22 19:05 | NUR ---
Patient in room PCU 3012. I have received report from Madhuri SPRINGER and had the opportunity to ask questions and assume patient care. Pt resting comfortably, respirations even and unlabored.
[2018-06-22] MEDS: haloperidol 10mg/5ml UD oral solution PO SCH (21:15)
[2018-06-23 02:00] VITALS: BP 127/85
[2018-06-23] MEDS: mineral oil/petrolatum ophthal oint EACHEYE SCH ×3 (02:00→14:00)
[2018-06-23 06:00] VITALS: BP 126/62
[2018-06-23 06:12] LABS: BASOPHILS % (AUTO) 0 % (0-1); EOSINOPHILS # (AUTO) 0.3 X10'3 (0-0.9); EOSINOPHILS % (AUTO) 1.7 % (0-6); HEMATOCRIT 44.2 % (42.0-52.0); LYMPHOCYTES # (AUTO) 0.5 X10'3 (1.1-4.8); LYMPHOCYTES % (AUTO) 2.4 % (21-51); MEAN CORPUSCULAR HEMOGLOBIN 29.3 PG (27.0-31.0); MEAN CORPUSCULAR HGB CONC 33.8 % (33.0-36.5); MEAN CORPUSCULAR VOLUME 86.5 FL (78-98); MEAN PLATELET VOLUME 11.6 FL (7.4-10.4); MONOCYTES # (AUTO) 1.3 X10'3 (0-0.9); MONOCYTES % (AUTO) 6.5 % (2-12); NEUTROPHILS # (AUTO) 17.9 X10'3 (1.8-7.7); NEUTROPHILS % (AUTO) 89.4 % (42-75); PLATELET COUNT 218 X10'3 (140-440); RED BLOOD COUNT 5.11 X10'6 (4.70-6.10); RED CELL DISTRIBUTION WIDTH 14.1 % (11.5-14.5)
--- NOTE | 2018-06-23 06:25 | NUR ---
Problems reprioritized. Patient report given, questions answered & plan of care reviewed with Shirley SPRINGER.
[2018-06-23 06:30] LABS: ALANINE AMINOTRANSFERASE 95 U/L (12-78); ALBUMIN 2.2 G/DL (3.4-5.0); ALBUMIN/GLOBULIN RATIO 0.6 (1.1-1.5); ALKALINE PHOSPHATASE 55 IU/L (46-116); ANION GAP 5 (8-16); ASPARTATE AMINO TRANSFERASE 32 U/L (10-37); BILIRUBIN,TOTAL 0.8 MG/DL (0.1-1.0); BLOOD UREA NITROGEN 29 MG/DL (7-18); BUN/CREATININE RATIO 30.5 (5.4-32.0); CALCIUM 8.4 MG/DL (8.5-10.1); CHLORIDE 102 MMOL/L (99-107); CREATININE 0.95 MG/DL (0.60-1.10); GLUCOSE 113 MG/DL (70-104); MAGNESIUM 2.3 MG/DL (1.5-2.4); PHOSPHORUS 3.5 MG/DL (2.3-4.5); POTASSIUM 4.8 MMOL/L (3.5-5.1); SODIUM 139 MMOL/L (135-145); TOTAL CARBON DIOXIDE 31.6 MMOL/L (24-32); TOTAL PROTEIN 6.2 G/DL (6.4-8.2); eGFR 79 ML/MIN
[2018-06-23] MEDS: ipratropium/albuterol 3ml nebule NEB SCH ×5 (07:00→15:00)
[2018-06-23 07:27] LABS: LARGE PLATELETS FEW; PLATELET ESTIMATE NORMAL
[2018-06-23] MEDS: K and/or MAG REPLACEMENT MC SCH (07:59)
[2018-06-23] MEDS: aspirin 81mg tablet.DR PO SCH (09:02)
[2018-06-23] MEDS: sulfamethoxazole/trimethoprim DS (800/160mg) tablet PO SCH (09:02)
[2018-06-23] MEDS: citalopram 20mg tablet PO SCH (09:02)
[2018-06-23] MEDS: prednisone 10mg tablet PO SCH (09:03)
[2018-06-23] MEDS: lactobacillus rhamnosus 10,000 MMU CELLS/CAPSULE PO SCH (09:03)
[2018-06-23] MEDS: famotidine 20mg tablet PO SCH (09:03)
[2018-06-23] MEDS: carVEDilol 3.125mg tablet PO SCH (09:03)
[2018-06-23] MEDS: atorvastatin 20mg tablet PO SCH (09:03)
[2018-06-23] MEDS: levoTHYROXINE 88mcg tablet PO SCH (09:03)
[2018-06-23] MEDS: enoxaparin 40mg/0.4ml syringe SUBCUT SCH (09:04)
[2018-06-23] MEDS: benztropine 1mg tablet PO SCH (09:09)
[2018-06-23 11:00] VITALS: BP 127/77
--- NOTE | 2018-06-23 11:56 | NUR ---
reassessment: Pt AOx1 w/ UTI, seizures, autism, and aspiration PNA w/ possible sepsis. PO 0-25% mechanical soft/chopped diet. Ensure enlive TIDWM added for additional needs; notified. LBM 06/22 w/ rectal tube pulled. Recommendations: 1) Continuous regular diet 2) Ensure Enlive TIDWM 3) BSS if difficulty chewing and swallowing, RN will monitor 4) Weight per rx Addendum: 06/23/18 at [address] Amended: Links added.
[2018-06-23] MEDS ORDERED: PRED20TA PO (16:08)
[2018-06-23] MEDS ORDERED: IPRA3AMP9 NEB (16:08)
[2018-06-23] MEDS ORDERED: BACDS PO (16:08)
[2018-06-23] MEDS ORDERED: ASPI-1071 PO (16:08)
[2018-06-23] MEDS ORDERED: COR3.125T PO (16:08)
== END 2018-06-23 16:50 | DRG 870 ==
LOC: ER 04:47 → ED HOLD 07:22 → PCU 3S 10:33 → CICU 2S 06-11 17:45 → PCU 3S 06-21 15:00
PROVIDERS: ADMIT Family Medicine; ATTEND Internal Medicine
PROC: 5A09357 Assistance with Respiratory Ventilation, Less than 24 Consecutive Hours, Continuous Positive Airway Pressure (ICD-10-PCS; principal; 2018-06-11)
PROC: 5A1955Z Respiratory Ventilation, Greater than 96 Consecutive Hours (ICD-10-PCS; 2018-06-11)
PROC: B32T1ZZ Computerized Tomography (CT Scan) of Left Pulmonary Artery using Low Osmolar Contrast (ICD-10-PCS; 2018-06-11)
PROC: B3201ZZ Computerized Tomography (CT Scan) of Thoracic Aorta using Low Osmolar Contrast (ICD-10-PCS; 2018-06-11)
PROC: B32S1ZZ Computerized Tomography (CT Scan) of Right Pulmonary Artery using Low Osmolar Contrast (ICD-10-PCS; 2018-06-11)
PROC: 02H633Z Insertion of Infusion Device into Right Atrium, Percutaneous Approach (ICD-10-PCS; 2018-06-11)
PROC: 0BH17EZ Insertion of Endotracheal Airway into Trachea, Via Natural or Artificial Opening (ICD-10-PCS; 2018-06-11)
DX: A41.9 Sepsis, unspecified organism (principal); J69.0 Pneumonitis due to inhalation of food and vomit; J96.01 Acute respiratory failure with hypoxia; I21.A1 Myocardial infarction type 2; F84.0 Autistic disorder; R57.9 Shock, unspecified; N17.9 Acute kidney failure, unspecified; E87.1 Hypo-osmolality and hyponatremia; J98.11 Atelectasis; R33.9 Retention of urine, unspecified; F20.9 Schizophrenia, unspecified; E03.9 Hypothyroidism, unspecified; J84.89 Other specified interstitial pulmonary diseases; E78.5 Hyperlipidemia, unspecified; E87.6 Hypokalemia; R19.7 Diarrhea, unspecified; I10 Essential (primary) hypertension; E86.0 Dehydration; F29 Unspecified psychosis not due to a substance or known physiological condition; F32.9 Major depressive disorder, single episode, unspecified; F41.9 Anxiety disorder, unspecified; R94.5 Abnormal results of liver function studies; Z79.82 Long term (current) use of aspirin; Z79.890 Hormone replacement therapy; Z79.899 Other long term (current) drug therapy; Z87.440 Personal history of urinary (tract) infections
CPT/HCPCS: 36415; 36600; 70450; 71045; 71275; 74018; 80053; 81001; 82803; 82810; 82948; 83036; 83605; 83735; 84100; 84132; 84134; 84439; 84443; 84480; 84484; 85018; 85025; 87040; 87070; 87088; 87324; 87449; 87502; 87503; 92616; 93306; 93308; 94002; 94003; 94640; 94660; 94760; 96365; 96375; 97110; 97116; 97162; 99285; G0378; J0360; J0456; J0696; J1630; J1644; J1650; J1815; J1940; J1956; J2060; J2250; J2270; J2405; J2543; J2765; J2930; J3370; J3480; J3490; J7030; J7512; Q9967

== ENCOUNTER 2021-02-10 10:29 | Emergency (ER) | payer MEDICARE, MEDICAID ==
[~2021-02-10] VITALS: Ht 153 cm; Wt 78.2 kg
[~2021-02-10 10:29] MED LIST changes: +ASPI-1071 PO; -CLON-528 PO; +COR3.125T PO; +IPRA3AMP9 NEB; +SIMV-42 PO; +SULF1TAB45 PO
[2021-02-10 13:44] VITALS: BP 124/79
[2021-02-10] MEDS ORDERED: DEXAMETHASONE 6 MG TABLET PO ONE (13:45)
[2021-02-10] MEDS ORDERED: DEXA6TAB6 PO (13:47)
== END 2021-02-10 14:04 | disposition home or self-care (01) ==
LOC: ER 10:29
DX: U07.1 COVID-19 (principal); R09.81 Nasal congestion; I10 Essential (primary) hypertension; Z87.440 Personal history of urinary (tract) infections; Z95.0 Presence of cardiac pacemaker; Z79.82 Long term (current) use of aspirin; Z79.899 Other long term (current) drug therapy
CPT/HCPCS: 87635; 99283; C9803; J8540

== ENCOUNTER 2024-08-06 11:26 | Emergency (ER) | payer MEDICARE, MEDICAID ==
[~2024-08-06] VITALS: Ht 167.6 cm; Wt 73.0 kg
[~2024-08-06 11:26] MED LIST changes: -BENZ1TAB7 PO; +BENZ1TAB97 PO; +CARV3.1232 PO; -COR3.125T PO; +DEXA6TAB6 PO
[2024-08-06 11:39] VITALS: BP 100/64; O2SAT 94
[2024-08-06 13:55] VITALS: PULSE 78; RESP 16; TEMP 97.2
== END 2024-08-06 13:40 | disposition home or self-care (01) ==
LOC: ER 11:27
DX: S61.211A Laceration without foreign body of left index finger without damage to nail, initial encounter (principal); S61.213A Laceration without foreign body of left middle finger without damage to nail, initial encounter; I10 Essential (primary) hypertension; F20.9 Schizophrenia, unspecified; Z95.0 Presence of cardiac pacemaker; Z87.440 Personal history of urinary (tract) infections; W01.0XXA Fall on same level from slipping, tripping and stumbling without subsequent striking against object, initial encounter; Y93.89 Activity, other specified; Y92.89 Other specified places as the place of occurrence of the external cause; Y99.8 Other external cause status
CPT/HCPCS: 12001; 99284; A6402; Z7610; A6449